=== PATIENT | female | born 1960 | race Caucasian/White ===

== ENCOUNTER → 2021-05-17 12:29 | Outpatient (CLI) | payer BC, SELFPAY ==
--- NOTE | ~2021-05-17 | XR_ITS ---
XR chest 2V DATE: 05/17/2021 12:45 INDICATION: Cough, bronchitis TECHNIQUE: Upright 2 views COMPARISON: None FINDINGS: Normal heart size. Mild patchy airspace disease is noted primarily in the mid and lower lung zones, right greater than l eft, suggesting bilateral pneumonia. No pleural effusion or pulmonary vascular congestion or pneumothorax is detected. Degenerative spurring of the thoracic spine. IMPRESSION: Patchy mild bilateral pulmonary infiltrates, mid and lower lung zones primarily, right gr eater than left, suggesting bilateral pneumonia Reviewed, dictated and finalized at location B. OR TECHNICAL BUSINESS ANALYST IMPRESSION: Patchy mild bilateral pulmonary infiltrates, mid and lower lung zon es primarily, right greater than left, suggesting bilateral pneumonia
== END ==
PROVIDERS: PCP Family Medicine; Visit Provider Family Medicine
DX: J40 Bronchitis, not specified as acute or chronic (principal); R05.9 Cough, unspecified; R91.8 Other nonspecific abnormal finding of lung field
CPT/HCPCS: 71046

== ENCOUNTER → 2021-06-06 17:43 | Outpatient (CLI) | payer BC, SELFPAY ==
--- NOTE | ~2021-06-06 | XR_ITS ---
EXAMINATION: XR chest 2V DATE: 06/06/2021 18:11 INDICATION: Dyspnea TECHNIQUE: PA and lateral views of the chest were obtained. COMPARISON: Chest radiograph dated 05/17/2021 FINDINGS: The lungs are clear with no focal airspace opacities, pulmonary edema, pleural effusion or pneumothor ax. The cardiomediastinal silhouette is normal. Mild thoracic spondylosis. IMPRESSION: 1. No acute cardiopulmonary disease. Reviewed, dictated and finalized at location A. D BANK BOOKING CLERK
== END ==
PROVIDERS: PCP Nurse Practitioner Family; Visit Provider Nurse Practitioner Family
DX: R06.00 Dyspnea, unspecified (principal); M47.814 Spondylosis without myelopathy or radiculopathy, thoracic region
CPT/HCPCS: 71046

== ENCOUNTER 2024-09-01 09:10 | Outpatient (CLI) | payer MEDICARE, SELFPAY ==
--- NOTE | ~2024-09-01 | CT_ITS ---
EXAMINATION: CT abdomen pelvis w con DATE: 09/01/2024 09:41 INDICATION: Unspecified abdominal pain TECHNIQUE: Computed tomography (CT) of the abdomen and pelvis was performed with 100 mL Omnipaque-350 intravenous contrast. Automated exposure control and iterative reconstruction technique were employe d. The dose-length product was 414.43 mGy-cm. COMPARISON: None FINDINGS: Lung bases are clear. Heart size is normal. No pericardial or pleural effusion. Liver, gallbladder, s pleen, pancreas, bilateral adrenal glands and kidneys are normal. There is inflammatory stranding mor rounding a 9.4 x 6.0 x 5.7 cm loculated fluid collection with some incomplete peripheral enhancement in the right lower quadrant. This lies along side a markedly dilated fluid-filled appendix which stevie ures up to 1.4 cm diameter. There appears to be a direct communication of the fluid collection with t he lumen of the dilated appendix through a defect in the appendiceal wall near its confluence with th e cecum consistent with a ruptured acute appendicitis. No bowel obstruction. Decompressed bladder is unremarkable. There are some small dystrophic calcifications centrally within the anteverted uterus. No free intraperitoneal gas. No pathologically enlarged abdominal or pelvic lymphadenopathy. Moderate lumbar and lower thoracic spondylosis. IMPRESSION: 1. Ruptured acute appendicitis with 9.4 x 6.0 x 5.7 cm loculated fluid collection in the right abdome n without well-defined organizing wall consistent with likely developing abscess. Dr. Gamez discus sed these findings with Dr. Newton at 10:[address] Newton will discuss findings and recommendati ons with the patient has been held in the department pending notification. Reviewed, dictated and finalized at location A. IMPRESSION: 1. Ruptured acute appendicitis with 9.4 x 6.0 x 5.7 cm loculated fluid collecti on in the right abdomen without well-defined organizing wall consistent with li reji developing abscess. Dr. Gamez discussed these findings with Dr. Lozano s at 10:[address] Newton will discuss findings and recommendations with the patient has been held in the department pending notification.
--- OUTSIDE RECORDS SUMMARY | 2024-09-01 09:23 | XMS_ITS | Continuity of Care Document ---
Author Organization [facility] Address [address] [place] [address] [place] [address] Phone Care Team Providers Care Nitriles Lab Technician Name Role Phone Heath Ashley MD Unavailable Unavailable Allergies, Adverse Reactions, Alerts Substance Reaction Status Criticality No Known Allergies Active No Inform ation Medications Medication Instructions Dosage Effective Dates (start - stop) Status Comments [place] 10 mg-325 mg tablet take 1 by Oral route 4 times every day as needed 1 - Active avoid driving or oepraet machines Ativan 1 mg tablet take 1 tablet by oral route 2 times every day as needed 1 MG - Active avoid drivin g or operate machines Qsymia 15 mg-92 mg capsule, extended release take 1 capsule by oral route every day in the morning 1.00 capsule - Active losartan 100 mg tablet take 1 tablet (100MG) by oral route every day 100 MG - Active Cymbalta 60 mg capsule,delayed release take 1 capsule (60MG) by oral route every day 60 MG - Active Procedures Procedure Date PREV VISIT, EST, AGE 40-64 OFFICE/OUTPATIENT VISIT, EST OFFICE/OUTPATIENT VISIT, EST OFFICE/OUTPATIENT VISIT, EST OFFICE/OUTPATIENT VISIT, EST PREV VISIT, EST, AGE 40-64 OFFICE/OUTPATIENT VISIT, EST OFFICE/OUTPATIENT VISIT, EST OFFICE/OUTPATIENT VISIT, EST OFFICE/OUTPATIENT VISIT, EST OFFICE/OUTPATIENT VISIT, EST OFFICE/OUTPATIENT VISIT, EST OFFICE/OUTPATIENT VISIT, EST OFFICE/OUTPATIENT VISIT, EST OFFICE/OUTPATIENT VISIT, EST OFFICE/OUTPATIENT VISIT, EST OFFICE/OUTPATIENT VISIT, EST OFFICE/OUTPATIENT VISIT, EST OFFICE/OUTPATIENT VISIT, EST OFFICE/OUTPATIENT VISIT, EST OFFICE/OUTPATIENT VISIT, EST OFFICE/OUTPATIENT VISIT, EST OFFICE/OUTPATIENT VISIT, EST OFFICE/OUTPATIENT VISIT, EST Advance Directives Directive Yes / No Effective Date File Name No Information Encounters Encounter Description Practice Location Reason(s) For Visit Diagnoses Date Provider Providers Copied on Encounter [facility], [address], [place], [place], [address], tel:[phone] [facility] Medicine No Information 8 Dion Weathers [address], [place], [place], [address] , [place]. [phone] [facility], [address], [address], [place] tel:[phone] [facility] No Information 8 Dion Weathers [address], [place], [place], [address] , [place]. tel:[phone] PREV VISIT, EST, AGE 40-64 [facility], [address], [place], [place], [address], [place] tel:[phone] [facility] Physical (chief complaint) Encounter for general adult medical exam w abnormal findingsEssential (primary) hypertensionGeneral ized anxiety disorderChronic pain syndrome 8 Dion Weathers [address], [place], [place], [address] , [place]. tel:[phone] Referring Provider: Heath Ashley [address], [place], [place], [address]. tel:[phone] OFFICE/OUTPA TIENT VISIT, [facility], [address], [place], [place], [address], [place] tel:[phone] [facility] Medicine weight loss1 (chief complaint) knee pain1 (chief complaint) anxiety1 (chief complaint) toothache1 (chief complaint) Atypical facial painChronic pain syndromeGeneralized anxiety disorderAbnormal weight loss 7 Dion Joe. [address], [place], [place], [address] , [place]. tel:[phone] Referring Provider: Heath Ashley [address], [place], [place], [address]. tel:[phone] OFFICE/OUTPA TIENT VISIT, [facility] ([facility], [address], [place], [place], [address], [place] tel:[phone] [facility] Medicine anxiety1 (chief complaint) HTN (chief complaint) knee pain1 (chief complaint) obesity1 (chief complaint) HLP (chief complaint) Body mass index (BMI) 32.0-32.9, adultChronic pain syndromeHyperlipide miaEssential (primary) hypertension 7 Dion Joe. [address], [place], [place], [address] , [place]. tel:[phone] Referring Provider: Tena [address], [place], [place], [address]. tel:[phone] OFFICE/OUTPA TIENT VISIT, [facility] ([facility], [address], [place], [place], [address], [place] tel:[phone] [facility] Medicine HTN (chief complaint) anxiety1 (chief complaint) obeisty1 (chief complaint) nail fungus1 (chief complaint) Dermatophytic onychiaGeneralized anxiety disorderChronic pain syndromeBody mass index (BMI) 35.0-35.9, adult 7 Dion Weathers [address], [place], [place], [address] , [place]. tel:[phone] Referring Provider: Heath Ashley, [address], [place], [place], [address]. tel:[phone] PREV VISIT, EST, AGE 40-64 [facility], [address], [place], [place], [address], [place] tel:[phone] [facility] PHysical (chief complaint) Encounter for general adult medical exam w abnormal findingsEssential (primary) hypertensionGeneral ized anxiety disorderChronic pain syndrome May- 7 Dion Joe. [address], [place], [place], [address] , [place]. tel:[phone] Referring Provider: Tena [address], [place], [place], [address]. tel:[phone] OFFICE/OUTPA TIENT VISIT, [facility] ([facility], [address], [place], [address], [place] tel:[phone] [facility] knee pain1 (chief complaint) anxiety1 (chief complaint) Chronic pain syndromeGeneralized anxiety disorder 6 Dion Joe. [address], [place], [place], [address] , [place]. tel:[phone] Referring Provider: Tena [address], [place], [place], [address]. tel:[phone] OFFICE/OUTPA TIENT VISIT, [facility] ([facility], [address], [place], [place], [address], [place] tel:[phone] [facility] knee pain1 (chief complaint) anxiety1 (chief complaint) HTN (chief complaint) Weight loss1 (chief complaint) Generalized anxiety disorderChronic pain syndromeEssential (primary) hypertensionObesity 6 Dion Joe. [address], [place], [place], [address] , [place]. tel:[phone] Referring Provider: Tena Patrick [address], [place], [place], [address]. tel:[phone] OFFICE/OUTPA TIENT VISIT, [facility] ([facility], [address], [place], [place], [address], [place] tel:[phone] [facility] Obesity1 (chief complaint) anxiety1 (chief complaint) knee pain1 (chief complaint) Chronic pain syndromeGeneralized anxiety disorderObesityEsse ntial (primary) hypertension 6 Dion Joe. [address], [place], [place], [address] , [place]. tel:[phone] Referring Provider: Heath Ashley, [address], [place], [place], [address]. tel:[phone] OFFICE/OUTPA TIENT VISIT, [facility] ([facility], [address], [place], [place], [address], [place] tel:[phone] [facility] chronic pain (chief complaint) anxiety1 (chief complaint) Generalized anxiety disorderPain in unspecified knee 6 Dion Joe. [address], [place], [place], [address] , [place]. tel:[phone] Referring Provider: Tena Patrick [address], [place], [place], [address]. tel:[phone] OFFICE/OUTPA TIENT VISIT, [facility] ([facility], [address], [place], [place], [address], [place] tel:[phone] [facility] anxiety1 (chief complaint) knee pain1 (chief complaint) Chronic pain syndromeGeneralized Anxiety Disorder 5 Dion Joe. [address], [place], [place], [address] , [place]. tel:[phone] Referring Provider: Tena Patrick [address], [place], [place], [address]. tel:[phone] OFFICE/OUTPA TIENT VISIT, [facility] ([facility], [address], [place], [place], [address], [place] tel:[phone] [facility] knee pain (chief complaint) HTN (chief complaint) anxiety (chief complaint) Dietary surveillance and counselingPain in joint involving lower legGeneralized anxiety disorderUnspecified essential hypertension Nov- 5 Dion Weathers [address], [place], [place], [address] , [place]. tel:[phone] Referring Provider: Tena Patrick [address], [place], [place], [address]. tel:[phone] OFFICE/OUTPA TIENT VISIT, [facility] ([facility], [address], [place], [place], [address], [place] tel:[phone] [facility] knee pain (chief complaint) anxiety (chief complaint) Dietary surveillance and counselingPain in joint involving lower legGeneralized anxiety disorder 5 Dion Weathers [address], [place], [place], [address] , [place]. tel:[phone] Referring Provider: Tena Patrick [address], [place], [place], [address]. tel:[phone] OFFICE/OUTPA TIENT VISIT, [facility] ([facility], [address], [place], [place], [address], [place] tel:[phone] [facility] knee pain (chief complaint) anxiety (chief complaint) Pain in joint involving lower legGeneralized anxiety disorderDietary surveillance and counseling May- 0 5 Dion Mads[address], [place], [place], [address] , [place]. tel:[phone] Referring Provider: Tena Patrick [address], [place], [place], [address]. tel:[phone] OFFICE/OUTPA TIENT VISIT, [facility] ([facility], [address], [place], [place], [address], [place] tel:[phone] [facility] cough (chief complaint) knee pain (chief complaint) HTN (chief complaint) anxiety (chief complaint) Dietary surveillance and counselingHypertens ion, UnspecifiedPain in joint involving lower legGeneralized anxiety disorderBronchitis, Acute 4 Dion Weathers [address], [place], [place], [address] , [place]. [phone] Referring Provider: Heath Ashley, [address], [place], [place], [address]. tel:[phone] OFFICE/OUTPA TIENT VISIT, [facility] ([facility], [address], [place], [place], [address], [place] [phone] [facility] HLP (chief complaint) knee pain (chief complaint) anxiety (chief complaint) Dietary surveillance and counselingHypertens ion, UnspecifiedPain in joint involving lower legMajor depressive affective disorder, single episode, mild degree Sep- 4 Dion Joe. [address], [place], [place], [address] , [place]. [phone] Referring Provider: Heath Ashley, T[address], [place], [place], [address]. tel:[phone] OFFICE/OUTPA TIENT VISIT, [facility] ([facility], [address], [place], [place], [address], [place] tel:[phone] [facility] knee pain (chief complaint) anxiety (chief complaint) Generalized anxiety disorderPain in joint involving lower leg Chad- 4 Dion Joe. [address], [place], [place], [address] , [place]. tel:[phone] Referring Provider: Heath Ashley, [address], [place], [place], [address]. tel:[phone] OFFICE/OUTPA TIENT VISIT, [facility] ([facility], [address], [place], [place], [address], [place] tel:[phone] [facility] KNee pain (chief complaint) anxiety (chief complaint) Dietary surveillance and counselingCHRONIC PAIN NECMajor depressive affective disorder, single episode, mild degree Feb-2 4 Dion Joe. [address], [place], [place], [address] , [place]. [phone] Referring Provider: Tena Patrick [address], [place], [place], [address]. tel:[phone] OFFICE/OUTPA TIENT VISIT, [facility] ([facility], [address], [place], [place], [address], [place] tel:[phone] [facility] Knee pain (chief complaint) anxiety (chief complaint) HTN (chief complaint) Dietary surveillance and counselingCHRONIC PAIN NECHypertension, UnspecifiedGenerali zed anxiety disorder Mar- 3 Dion Joe. [address], [place], [place], [address] , [place]. tel:[phone] Referring Provider: Heath Ashley, [address], [place], [place], [address]. tel:[phone] OFFICE/OUTPA TIENT VISIT, [facility] ([facility], [address], [place], [place], [address], [place] [phone] [facility] knee pain (chief complaint) HTN (chief complaint) anxiety (chief complaint) Dietary surveillance and counselingHypertens ion, UnspecifiedGenerali zed anxiety disorderPain in joint involving lower leg Nov- 3 Dion Joe. [address], [place], [place], [address] , [place]. tel:[phone] Referring Provider: Tena Patrick [address], [place], [place], [address]. tel:[phone] OFFICE/OUTPA TIENT VISIT, [facility] ([facility], [address], [place], [place], [address], [place] tel:[phone] [facility] hand pain (chief complaint) anxiety (chief complaint) HTN (chief complaint) KNee pain (chief complaint) Dietary surveillance and counselingHypertens ion, UnspecifiedCHRONIC PAIN NECGeneralized anxiety disorder Aug- 3 Dion Joe. [address], [place], [place], [address] , [place]. tel:[phone] Referring Provider: Tena Patrick [address], [place], [place], [address]. tel:[phone] OFFICE/OUTPA TIENT VISIT, [facility] ([facility], [address], [place], [place], [address], [place] tel:[phone] [facility] knee pain (chief complaint) HTN (chief complaint) anxiety (chief complaint) Dietary surveillance and counselingHypertens ion, UnspecifiedPain in joint involving lower legGeneralized anxiety disorder 3 Ashley Heath. [address], [place], [place], [address] , [place]. tel:[phone] OFFICE/OUTPA TIENT VISIT, [facility] ([facility], [address], [place], [place], [address], [place] tel:[phone] [facility] knee pain (chief complaint) anxiety (chief complaint) HTN (chief complaint) Dietary surveillance and counselingHypertens ion, UnspecifiedCHRONIC PAIN NECMajor depressive affective disorder, single episode, mild degree 2 Dion Joe. [address], [place], [place], [address] , [place]. tel:[phone] Family History Family Member Type Diagnosis Age At Onset Mother Problem (finding) Alcoholism Brother Problem (finding) Alive and well Father Problem (finding) Coronary artery disease 65 Father Problem (finding) Alive and well Payers Payer name Insurance type Covered alliance party ID Authoriza tion(s) No Information Social History Type Description Quantity Date Captured Comments Alcohol Use Details Unknown Caffeine Use Details Unknown Tobacco Use Status No Information Smoking Status No Information Sex Female Chief Complaint And Reason For Visit No Information Plan Of Treatment Date Type Action Status Referral Ordered: Donny Crane (related to Dermatophytic onychia) ordered Referral Referred To: Donny Crane [address] [place], [id number] Ordered: Referrals: Donny Crane. Evaluate and treat ordered Referral Ordered: MAMMOGRAM, SCREENING ordered Referral Ordered: MRI LOWER EXTREMITY W/O DYE Right knee ordered Referral Ordered: KNEE XRAY TWO-VIEW ordered Referral Ordered: HAND XRAY, TWO VIEW Right hand ordered History Of Present Illness Encounter Date Complaint History Of Prese nt Illness Physical Pt needs annual physicla. Pt has chronic anxiety and depression. Pt takes cymbalta and ativan and doing ok Pt denies any suicidal or homicidal thought Pt deneis any crying spells. pt tkaes nroco for chronic kene pain. Pt takes qsymia for weight control. Pt doing ok. Pt also has HTn pt takes losatan and her BP is stalbe. Pt denies any other complaints toothache1 Pt c/o right low er molar toothache. Pt has multiple fillings due to decay and cavity. Pt denies any facial swelling. Pt does not have appointment with dentist until 4 weeks from now. anxiety1 Pt has chronic a nxiety and depression. Pt takes cymblata and ativanand doing ok. Pt denies any suicidal or homicidal thought. Pt denies any crying spells. knee pain1 Pt has chronic s evere bilateral knee pain due to arthritis. Pt does not want knee replacement surgery ,Pt takes norco PRN for pain and doing ok. Pt denies any knee swelling or redness. weight loss1 Pt has been losi ng weight on qsymia. Pt denies any Gi issue. Pt denies any nasuea, vomiting, diarrhea or blood in stool anxiety1 Pt has chronic a nxiety and depression. Pt takes cymbalta and ativan. Pt doing ok. Pt denies any suicidal or homicidal thought Pt denies any cyring spells HTN Pt has HTN. Pt t akes losartan and her BP is ok Pt denies any chest pain or headache knee pain1 Pt has bilatearl knee pain due to arthritis. Pt is doing ok with norco PRN for pain. Pt denies any worsening pain. Pt denies nay redness or swelling obesity1 Pt is obese Pt h as lost weight with diet and exercise and qsymia. Pt denies any chest pain or headache HLP Pt has mild HLP Pt is on low fat and low carb diet nail fungus1 Pt c/o right big nail fungus for 2 months. Pt notices irregularity of nail growth and also thickened right big nail growth Pt has been trying OTC anti fungal but not working obeisty1 Pt is overweigth Pt takes qsymia and shelost some weight but gained back Pt denies any chest pain and hedache Pt wants to continue on qsymia anxiety1 Pt has chronic a nxiety and depression Pt takes cymbalta and ativan and doing ok, Pt denies any suicidal or homcidial thoguht HTN Pt has HTN. Pt t akes losartan and her BP is ok. Pt denies any chest pain or headache PHysical Pt needs annual physical. Pt has chronic anxiety and depression. Pt takes cymbalta and ativan. pt denies any suicidal or homicidal thought. Pt denies any crying spells. Pt has HTN. Pt takes losartan and her BP is stable. Pt has chornic knee pain. Pt takes norco PRN for pain Pt denies any worsening pain Pt denies any swelling. Pt has 7/10 pain. Pt stopped phentermine 3 months ago. Pt wants to try phentermine again. Pt did well with it last time. anxiety1 Pt has chornic a nxiety and depression Pt takes cymbalta and ativan and doing ok Pt denies any suicidal or homicidal thought knee pain1 Pt has chornic k nee pain. Pt takes norco and doing ok Pt failed NSAID. pt denies any worsening pain or any swelling Weight loss1 Pt lost 15 pound s with phentermine. Pt wants to try brand name adipex. Pt denies any headache, chest pain HTN Pt has HTn. Pt t akes losartan. Her BP is slighlty high today. Pt denies any chest pain or headache anxiety1 Pt has chronic a nxiety and depression Pt takes cymblta and ativan. Pt denies any suicidal or homicidal thought. Pt denies any crying spells knee pain1 Pt has chronic s evere bilateral knee pain .Pt takes norco for pain Pt failed NSAID. Pt denies any wroenign pain. 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 Pt denies any worsneing pain. Pt has severe arthritis. Pt unable to afford MRI or ortho now anxiety1 Pt has chronic a nxiety and depression. Pt takes cymbalta and xanax. Pt denies any suicidasl thought. Pt denies any cyring spells Obesity1 Pt is obese. Pt has difficulty losing weight. Pt has knee pain so she may only swim but she canot do any other activity anxiety1 Pt has chronic a nxiety and depression. Pt takes cymbalta and ativan. Pt denies any suicidal or homicidal thought. Pt denies any cyring spells chronic pain Pt has chronic b ilateral knee pain. Pt has degenerative disease. Pt unable to afford MRi and she does not want to see ortho for knee replacement anxiety1 Pt has chronic a nxiety and depression Pt takes cymbalta and ativan. Pt doing ok. Pt denies any suicidal or homicidal thought Pt denies any crying spells Pt denies any feeling of hopelessness. knee pain1 Pt has chronic b ilateral knee pain Pt denies any swelling. Pt denies any redness or warmth. Pt denies any recent injury. Pt has 8/10 pain daily HTN Pt takes losarta . Her BP is ok today. Pt denies any chest pain or headcahe knee pain Location: knee. Additional information: Pt has chronic knee pain. Pt unable to afford mRI or ortho. Pt denies any worsening pain. Pt has sharp pain constantly. Pt denies any knee swelling. anxiety The patient pres ents with anxious/fearful thoughts but denies fatigue. The anxiety is associated with weight gain. The patient denies any nausea and vomiting. Additional information: Pt has chronic anxiety and depression. Pt takes cymbalta and ativan. Pt doing ok. Pt denies any suicidal thought. Pt wants to wean herself off of cymbalta at one point on her own but feels worse. Pt is back on regular dose of cymbalta now. knee pain Location: knee. Additional information: Pt has chronic knee pain Pt denies any worsening pain Pt uanble to afford MRI. anxiety Additional infor mation: Pt has chrnic anxiety and depression. Pt takes ativan and cymbalta and doing ok. Pt denies any suicidal thought. Instructions Date Instruction Additional Infor mation Weight management Related to Enc ounter for general adult medical exam w abnormal findings Increase physical activity Relat ed to Encounter for general adult medical exam w abnormal findings Prescribed Diet Educ ation/Lifestyle Education Regarding Diet Related to Dietary Surveillance and Counseling Prescribed Activity and Exercise Education Related to Dietary Surveillance and Counseling Prescribed Activity and Exercise Education Related to Dietary Surveillance and Counseling Prescribed Diet Educ ation/Lifestyle Education Regarding Diet Related to Dietary Surveillance and Counseling Increase physical activity Relat ed to Atypical facial pain Weight management Related to Aty pical facial pain Prescribed Activity and Exercise Education Related to Dietary Surveillance and Counseling Prescribed Diet Educ ation/Lifestyle Education Regarding Diet Related to Dietary Surveillance and Counseling Increase physical activity Relat ed to Body mass index (BMI) 32.0-32.9, adult Weight management Related to Bod y mass index (BMI) 32.0-32.9, adult Prescribed Diet Educ ation/Lifestyle Education Regarding Diet Related to Dietary Surveillance and Counseling Prescribed Activity and Exercise Education Related to Dietary Surveillance and Counseling Prescribed Activity and Exercise Education Related to Dietary Surveillance and Counseling Prescribed Diet Educ ation/Lifestyle Education Regarding Diet Related to Dietary Surveillance and Counseling Prescribed Activity and Exercise Education Related to Dietary Surveillance and Counseling Prescribed Diet Educ ation/Lifestyle Education Regarding Diet Related to Dietary Surveillance and Counseling Prescribed Activity and Exercise Education Related to Dietary Surveillance and Counseling Prescribed Diet Educ ation/Lifestyle Education Regarding Diet Related to Dietary Surveillance and Counseling Prescribed Activity and Exercise Education Related to Dietary Surveillance and Counseling Prescribed Diet Educ ation/Lifestyle Education Regarding Diet Related to Dietary Surveillance and Counseling Prescribed Activity and Exercise Education Related to Dietary Surveillance and Counseling Prescribed Diet Educ ation/Lifestyle Education Regarding Diet Related to Dietary Surveillance and Counseling Prescribed Diet Educ ation/Lifestyle Education Regarding Diet Related to Dietary Surveillance and Counseling Prescribed Activity and Exercise Education Related to Dietary Surveillance and Counseling Prescribed Diet Educ ation/Lifestyle Education Regarding Diet Related to Dietary Surveillance and Counseling Prescribed Activity and Exercise Education Related to Dietary Surveillance and Counseling Decrease caloric intake Related to Dietary surveillance counseling Physical activity counseling Rel ated to Dietary surveillance counseling Physical activity counseling Rel ated to Dietary surveillance counseling Decrease caloric intake Related to Dietary surveillance counseling Decrease caloric intake Related to Dietary surveillance counseling Dietary counseling Related to Di etary surveillance counseling Decrease caloric intake Related to Dietary surveillance counseling Dietary counseling Related to Di etary surveillance counseling Decrease caloric intake Related to Dietary surveillance counseling Dietary counseling Related to Di etary surveillance counseling Dietary counseling Related to Di etary surveillance counseling Decrease caloric intake Related to Dietary surveillance counseling Dietary counseling Related to Di etary surveillance counseling Decrease caloric intake Related to Dietary surveillance counseling Decrease caloric intake Related to Dietary surveillance counseling Dietary counseling Related to Di etary surveillance counseling Dietary counseling Related to Di etary surveillance counseling Decrease caloric intake Related to Dietary surveillance counseling Assessments Type Assessment Date No Information
--- OUTSIDE RECORDS SUMMARY | 2024-09-01 09:23 | XMS_ITS | Clinical Summary ---
Author Organization [facility] Address [facility] [place] [address] Care Team Providers Care Bag Maker Name Role Phone Darin Hernandez MD Primary Care Provider [phone] Source Comments [facility],non-owned Affiliates and Associated Physician Practices is amultiple site organization consisting of ambulatory clinics and hospital sitesin [place], [place], [place] and [place]. This disclosure is being madepursuant to the Care Everywhere program and may not contain all information available regarding this patient. Last updated 17.[facility] [employer] Allergies No known active allergies Medications * Be aware that medications may not be up to date on this document. Alwaysverify current medications with the patient. losartan (COZAAR) 100 MG tablet Take 100 mg by mouth once daily Active busPIRone (BUSPAR) 10 MG tablet Take 10 mg by mouth 3 times daily Active zolpidem (AMBIEN) 5 MG tablet Take 5 mg by mouth nightly as needed for Insomnia Active HYDROcodone-felix taminophen (NORCO) 5-325 MG tabletIndicatio ns:Pain Take 1 tablet by mouth as needed for Pain Reasons: Pain Active Social History Tobacco Use Types Packs/Day Years Used Date Smoking Tobacco: Never Smokeless Tobacco: Never Alcohol Use Standard Drinks/Week Comments No 0 (1 standard drink = 0.6 oz pur e alcohol) Comments No Sex and Gender Information Value Date Recorded Sex Assigned at Not on file 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 Gender Identity Not on file Sexual Orientation Not on file Last Filed Vital Signs Vital Sign Reading Time Taken Comments Blood Pressure 150/84 08/05/2018 2:00 PM CDT Pulse 81 08/05/2018 2:00 PM CDT Temperature 36.6 C (97.8 F) 08/05/2018 9:19 AM CDT Respiratory Rate 13 08/05/2018 2:00 PM CDT Oxygen Saturation 97% 08/05/2018 2:00 PM CDT Inhaled Oxygen Concentration - - Weight 93 kg (205 lb) 08/05/2018 9:19 AM CDT Height 160 cm (5' 3) 08/05/2018 9:19 AM CDT Body Mass Index 36.31 08/05/2018 9:19 AM CDT Plan of Treatment Health Maintenance Due Date Last Done Comments BONE DENSITY TESTING 1959 COLOGUARD (AGES 45-75) - COL ON CA SCREENING 1959 COLON MONITORING 1959 COLONOSCOPY - COLON CA SCREENING 1959 CT COLONOGRAPHY - COLON CA SCREENING 1959 Colorectal Cancer Screening 1959 FIT - COLON CA SCREENING 1959 FLEX SIG - COLON CA SCREENING 1959 LIPID TESTING 1959 MAMMOGRAM 1959 HIV SCREENING 1974 HEPATITIS C SCREENING 04/25/1977 DTAP/TDAP/TD VACCINES (1 - Tdap) 1978 PNEUMOCOCCAL VACCINE 50+ (1 of 1 - PCV) 2009 ZOSTER VACCINE (1 of 2) 2009 COVID-19 VACCINE ( - 2023-2 5 season) 2023 DEPRESSION SCREENING 04/01/2024 INFLUENZA VACCINE (Season Ended) 2024 Respiratory Syncytial Virus (RSV) Vaccine Pt: or over 60 yrs (1 - 1-dose 75+ series) 2034 HEPATITIS B VACCINE Aged Out No longe r eligible based on patient's age to complete this topic HIB VACCINE Aged Out No longer eligi ble based on patient's age to complete this topic HPV VACCINE Aged Out No longer eligi ble based on patient's age to complete this topic MENINGOCOCCAL (Group B) VACC INE SHARED DECISION-MAKING Aged Out No longer eligibl e based on patient's age to complete this topic MENINGOCOCCAL GROUPS A/C/Y/W VACCINE Aged Out No longer eligible b ased on patient's age to complete this topic Insurance [employer] LIABILITY Member Subscriber Plan / Payer ( fective 2018-Present) Name:Juanita Santosa Member ID:[id number] Relation to Subscriber:Self Name:Fanny Santos Subscriber ID:[id number] Payer ID:Not on file Group ID:Not on file Type:Third Green Party Liability [id number] Address: [address] Care Teams Bag Maker Relationship Specialty Start Date End Date Darin Hernandez MD [address] [place] [address] PCP - General Family Medicine 08/05/18
[2024-09-01 09:36] LABS: Estimated Glomerular Filt Rate > 60
== END 2024-09-01 09:11 | disposition home or self-care (01) ==
LOC: ANHIMG 09:12
PROVIDERS: PCP Family Medicine; Visit Provider Nurse Practitioner Family
DX: K35.33 Acute appendicitis with perforation, localized peritonitis, and gangrene, with abscess (principal)
CPT/HCPCS: 36415; 74177; Q9967

== ENCOUNTER 2024-09-01 10:08 | Inpatient (IN) | payer MEDICARE, SELFPAY ==
--- NOTE | ~2024-09-01 | CT_ITS ---
EXAMINATION: CT guide absc cath placement DATE: 09/02/2024 09:03 INDICATION: Appendiceal abscess TECHNIQUE: The procedure including the risks and benefits was discussed with the patient. Risks discu ssed included bleeding and infection. The patient understood the risks and benefits and agreed to pro ceed. The patient was confirmed to be receiving appropriate antibiotic coverage. The skin overlying the abdomen was prepped and draped in usual sterile fashion. Anesthetic was administered with 1% lid ocaine subcutaneously. Utilizing CT guidance an 18-gauge trochar needle was inserted into the periton eal fluid collection. The inner stylette was removed and a J-wire advanced into the fluid collection with position confirmed by CT. Needle was removed and utilizing Seldinger technique the tract was ser ially dilated over the wire to 10 Welsh. A 10 Welsh pigtail catheter was then placed in the loop fo rmed and locked with position confirmed by CT. The catheter was stitched to the skin with suture. Ant ibiotic appointment and a sterile dressing were applied. An additional adhesive fixation device was a pplied. There were no immediate complications. The dose-length product was 194.46 mGy-cm. FINDINGS: CT images demonstrate the catheter within the right lower quadrant abscess. 50 mL of purule nt appearing opaque acosta-colored fluid was aspirated for testing. IMPRESSION: 1. Successful CT-guided right lower quadrant abscess drainage catheter placement. 2. 50 mL fluid was sent for aerobic and anaerobic cultures. 3. The catheter will be managed by Dr. Ibanez. Reviewed, dictated and finalized at location A. IMPRESSION: 1. Successful CT-guided right lower quadrant abscess drainage catheter placemen t. 2. 50 mL fluid was sent for aerobic and anaerobic cultures. 3. The catheter will be managed by Dr. Ibanez.
[2024-09-01 10:11] VITALS: BP 123/69; PULSE 94; RESP 16; TEMP 37; O2SAT 98
--- OUTSIDE RECORDS SUMMARY | 2024-09-01 10:27 | XMS_ITS | Continuity of Care Document ---
Author Organization [facility] Address [address] [place] [address] [place] [address] Phone Care Team Providers Care Wood Club Neck Whipper Name Role Phone Heath Ashley MD Unavailable Unavailable Allergies, Adverse Reactions, Alerts Substance Reaction Status Criticality No Known Allergies Active No Inform ation Medications Medication Instructions Dosage Effective Dates (start - stop) Status Comments Ativan 1 mg tablet take 1 tablet by oral route 2 times every day as needed 1 MG - Active avoid drivin g or operate machines Lincoln 10 mg-325 mg tablet take 1 by Oral route 4 times every day as needed 1 - Active avoid driving or oepraet machines Cymbalta 60 mg capsule,delayed release take 1 capsule (60MG) by oral route every day 60 MG - Active losartan 100 mg tablet take 1 tablet (100MG) by oral route every day 100 MG - Active Qsymia 15 mg-92 mg capsule, extended release take 1 capsule by oral route every day in the morning 1.00 capsule - Active Procedures Procedure Date PREV VISIT, [...] Diagnoses Date Provider Providers Copied on Encounter [facility], [address], [place], [place], [address], tel:[phone] [facility] Medicine No Information 8 Dion Weathers [address], [place], [place], [address] , [place]. [phone] [facility], [address], [address], [place] tel:[phone] [facility] No Information 8 Dion Weathers [address], [place], [place], [address] , [place]. tel:[phone] PREV VISIT, EST, AGE 40-64 [facility], [address], [place], [place], [address], [place] tel:[phone] [facility] Physical (chief complaint) Encounter for general adult medical exam w abnormal findingsEssential (primary) hypertensionGeneral ized anxiety disorderChronic pain syndrome 8 Dion Weathers [address], [place], [place], [address] , [place]. tel:[phone] Referring Provider: Hetah Ashley [address], [place], [place], [address]. tel:[phone] OFFICE/OUTPA TIENT VISIT, [facility], [address], [place], [place], [address], [place] tel:[phone] [facility] Medicine weight loss1 (chief complaint) knee pain1 (chief complaint) anxiety1 (chief complaint) toothache1 (chief complaint) Atypical facial painChronic pain syndromeGeneralized anxiety disorderAbnormal weight loss 7 Dion Joe. [address], [place], [place], [address] , [place]. tel:[phone] Referring Provider: Heath Ashley [address], [place], [place], [address]. tel:[phone] OFFICE/OUTPA TIENT VISIT, [facility], [address], [place], [place], [address], [place] tel:[phone] [facility] Medicine anxiety1 (chief complaint) HTN (chief complaint) knee pain1 (chief complaint) obesity1 (chief complaint) HLP (chief complaint) Body mass index (BMI) 32.0-32.9, adultChronic pain syndromeHyperlipide miaEssential (primary) hypertension 7 Dion Joe. [address], [place], [place], [address] , [place]. tel:[phone] Referring Provider: Tena [address], [place], [place], [address]. tel:[phone] OFFICE/OUTPA TIENT VISIT, [facility], [address], [place], [place], [address], [place] tel:[phone] [facility] Medicine HTN (chief complaint) anxiety1 (chief complaint) obeisty1 (chief complaint) nail fungus1 (chief complaint) Dermatophytic onychiaGeneralized anxiety disorderChronic pain syndromeBody mass index (BMI) 35.0-35.9, adult 7 Dion Weathers [address], [place], [place], [address] , [place]. tel:[phone] Referring Provider: Heath Ashley, [address], [place], [place], [address]. tel:[phone] PREV VISIT, EST, AGE 40-64 [facility], [address], [place], [place], [address], [place] tel:[phone] [facility] PHysical (chief complaint) Encounter for general adult medical exam w abnormal findingsEssential (primary) hypertensionGeneral ized anxiety disorderChronic pain syndrome May- 7 Dion Joe. [address], [place], [place], [address] , [place]. tel:[phone] Referring Provider: Tena [address], [place], [place], [address]. tel:[phone] OFFICE/OUTPA TIENT VISIT, [facility], [address], [place], [address], [place] tel:[phone] [facility] knee pain1 (chief complaint) anxiety1 (chief complaint) Chronic pain syndromeGeneralized anxiety disorder 6 Dion Joe. [address], [place], [place], [address] , [place]. tel:[phone] Referring Provider: Tena [address], [place], [place], [address]. tel:[phone] OFFICE/OUTPA TIENT VISIT, [facility], [address], [place], [place], [address], [place] tel:[phone] [facility] knee pain1 (chief complaint) anxiety1 (chief complaint) HTN (chief complaint) Weight loss1 (chief complaint) Generalized anxiety disorderChronic pain syndromeEssential (primary) hypertensionObesity 6 Dion Joe. [address], [place], [place], [address] , [place]. tel:[phone] Referring Provider: Tena [address], [place], [place], [address]. tel:[phone] OFFICE/OUTPA TIENT VISIT, [facility], [address], [place], [address], [place] tel:[phone] [facility] Obesity1 (chief complaint) anxiety1 (chief complaint) knee pain1 (chief complaint) Chronic pain syndromeGeneralized anxiety disorderObesityEsse ntial (primary) hypertension 6 Dion Joe. [address], [place], [place], [address] , [place]. tel:[phone] Referring Provider: Heath Ashley, [address], [place], [place], [address]. tel:[phone] OFFICE/OUTPA TIENT VISIT, [facility], [address], [place], [place], [address], [place] tel:[phone] [facility] chronic pain (chief complaint) anxiety1 (chief complaint) Generalized anxiety disorderPain in unspecified knee 6 Dion Joe. [address], [place], [place], [address] , [place]. tel:[phone] Referring Provider: Tena [address], [place], [place], [address]. tel:[phone] OFFICE/OUTPA TIENT VISIT, [facility], [address], [place], [place], [address], [place] tel:[phone] [facility] anxiety1 (chief complaint) knee pain1 (chief complaint) Chronic pain syndromeGeneralized Anxiety Disorder 5 Dion Joe. [address], [place], [place], [address] , [place]. tel:[phone] Referring Provider: Tena [address], [place], [place], [address]. tel:[phone] OFFICE/OUTPA TIENT VISIT, [facility], [address], [place], [place], [address], [place] tel:[phone] [facility] knee pain (chief complaint) HTN (chief complaint) anxiety (chief complaint) Dietary surveillance and counselingPain in joint involving lower legGeneralized anxiety disorderUnspecified essential hypertension Nov- 5 Dion Weathers [address], [place], [place], [address] , [place]. tel:[phone] Referring Provider: Tena [address], [place], [place], [address]. tel:[phone] OFFICE/OUTPA TIENT VISIT, [facility], [address], [place], [place], [address], [place] tel:[phone] [facility] knee pain (chief complaint) anxiety (chief complaint) Dietary surveillance and counselingPain in joint involving lower legGeneralized anxiety disorder 5 Dion Weathers [address], [place], [place], [address] , [place]. tel:[phone] Referring Provider: Tena [address], [place], [place], [address]. tel:[phone] OFFICE/OUTPA TIENT VISIT, [facility], [address], [place], [place], [address], [place] tel:[phone] [facility] knee pain (chief complaint) anxiety (chief complaint) Pain in joint involving lower legGeneralized anxiety disorderDietary surveillance and counseling May- 0 5 Dion [address], [place], [place], [address] , [place]. tel:[phone] Referring Provider: Tena Patrick [address], [place], [place], [address]. tel:[phone] OFFICE/OUTPA TIENT VISIT, [facility], [address], [place], [place], [address], [place] tel:[phone] [facility] cough (chief complaint) knee pain (chief complaint) HTN (chief complaint) anxiety (chief complaint) Dietary surveillance and counselingHypertens ion, UnspecifiedPain in joint involving lower legGeneralized anxiety disorderBronchitis, Acute 4 Dion Weathers [address], [place], [place], [address] , [place]. [phone] Referring Provider: Heath Ashley, [address], [place], [place], [address]. tel:[phone] OFFICE/OUTPA TIENT VISIT, [facility], [address], [place], [place], [address], [place] [phone] [facility] HLP (chief complaint) knee pain (chief complaint) anxiety (chief complaint) Dietary surveillance and counselingHypertens ion, UnspecifiedPain in joint involving lower legMajor depressive affective disorder, single episode, mild degree Sep- 4 Dion Joe. [address], [place], [place], [address] , [place]. [phone] Referring Provider: Heath Ashley, [address], [place], [place], [address]. tel:[phone] OFFICE/OUTPA TIENT VISIT, [facility], [address], [place], [place], [address], [place] tel:[phone] [facility] knee pain (chief complaint) anxiety (chief complaint) Generalized anxiety disorderPain in joint involving lower leg Chad- 4 Dion Joe. [address], [place], [address] , [place]. tel:[phone] Referring Provider: Heath Ashley, [address], [place], [place], [address]. tel:[phone] OFFICE/OUTPA TIENT VISIT, [facility], [address], [place], [place], [address], [place] tel:[phone] [facility] KNee pain (chief complaint) anxiety (chief complaint) Dietary surveillance and counselingCHRONIC PAIN NECMajor depressive affective disorder, single episode, mild degree Feb-2 4 Dion Joe. [address], [place], [address] , [place]. tel:[phone] Referring Provider: Tena [address], [place], [address]. tel:[phone] OFFICE/OUTPA TIENT VISIT, [facility], [address], [place], [address], [place] tel:[phone] [facility] Knee pain (chief complaint) anxiety (chief complaint) HTN (chief complaint) Dietary surveillance and counselingCHRONIC PAIN NECHypertension, UnspecifiedGenerali zed anxiety disorder Mar- 3 Dion Joe. [address], [place], [address] , [place]. tel:[phone] Referring Provider: Heath Ashley, [address], [place], [place], [address]. tel:[phone] OFFICE/OUTPA TIENT VISIT, [facility], [address], [place], [place], [address], [place] [phone] [facility] knee pain (chief complaint) HTN (chief complaint) anxiety (chief complaint) Dietary surveillance and counselingHypertens ion, UnspecifiedGenerali zed anxiety disorderPain in joint involving lower leg Nov- 3 Dion Joe. [address], [place], [place], [address] , [place]. tel:[phone] Referring Provider: Tena [address], [place], [place], [address]. tel:[phone] OFFICE/OUTPA TIENT VISIT, [facility], [address], [place], [place], [address], [place] tel:[phone] [facility] hand pain (chief complaint) anxiety (chief complaint) HTN (chief complaint) KNee pain (chief complaint) Dietary surveillance and counselingHypertens ion, UnspecifiedCHRONIC PAIN NECGeneralized anxiety disorder Aug- 3 Dion Joe. [address], [place], [place], [address] , [place]. tel:[phone] Referring Provider: Tena [address], [place], [place], [address]. tel:[phone] OFFICE/OUTPA TIENT VISIT, [facility], [address], [place], [place], [address], [place] tel:[phone] [facility] knee pain (chief complaint) HTN (chief complaint) anxiety (chief complaint) Dietary surveillance and counselingHypertens ion, UnspecifiedPain in joint involving lower legGeneralized anxiety disorder 3 Ashley Heath. [address], [place], [place], [address] , [place]. tel:[phone] OFFICE/OUTPA TIENT VISIT, [facility], [address], [place], [place], [address], [place] tel:[phone] [facility] knee pain (chief complaint) anxiety (chief complaint) HTN (chief complaint) Dietary surveillance and counselingHypertens ion, UnspecifiedCHRONIC PAIN NECMajor depressive affective disorder, single episode, mild degree 2 Dion Joe. [address], [place], [place], [address] , [place]. tel:[phone] Family History Family Member Type Diagnosis Age At Onset Mother Problem (finding) Alcoholism Brother Problem (finding) Alive and well Father Problem (finding) Coronary artery disease 65 Father Problem (finding) Alive and well Payers Payer name Insurance type Covered libertarian ID Authoriza tion(s) No Information Social History Type Description Quantity Date Captured Comments Alcohol Use Details Unknown Caffeine Use Details Unknown Tobacco Use Status No Information Smoking Status No Information Sex Female Chief Complaint And Reason For Visit No Information Plan Of Treatment Date Type Action Status Referral Ordered: Donny Crane (related to Dermatophytic onychia) ordered Referral Referred To: Donny Crane [address] [place], [id number] Ordered: Referrals: Donny Crane. Evaluate and treat [...] is stalbe. Pt denies any other complaints weight loss1 Pt has been losi ng weight on qsymia. Pt denies any Gi issue. Pt denies any nasuea, vomiting, diarrhea or blood in stool knee pain1 Pt has chronic s evere bilateral knee pain due to arthritis. Pt does not want knee replacement surgery ,Pt takes norco PRN for pain and doing ok. Pt denies any knee swelling or redness. anxiety1 Pt has chronic a nxiety and depression. Pt takes cymblata and ativanand doing ok. Pt denies any suicidal or homicidal thought. Pt denies any crying spells. toothache1 Pt c/o right low er molar [...] on low fat and low carb diet HTN Pt has HTN. Pt t akes losartan and her BP is ok. Pt denies any chest pain or headache anxiety1 Pt has chronic a nxiety and depression Pt takes cymbalta and ativan and doing ok, Pt denies any suicidal or homcidial thoguht obeisty1 Pt is overweigth Pt takes qsymia and shelost some weight but gained back Pt denies any chest pain and hedache Pt wants to continue on qsymia nail fungus1 Pt c/o right big nail fungus for 2 months. Pt notices irregularity of nail growth and also thickened right big nail growth Pt has been trying OTC anti fungal but not working PHysical Pt needs annual physical. Pt has [...] Pt did well with it last time. knee pain1 Pt has chornic k nee pain. Pt takes norco and doing ok Pt failed NSAID. pt denies any worsening pain or any swelling anxiety1 Pt has chornic a nxiety and depression Pt takes cymbalta and ativan and doing ok Pt denies any suicidal or homicidal thought knee pain1 Pt has chronic s evere bilateral knee pain .Pt takes norco for pain Pt failed NSAID. Pt denies any wroenign pain. Pt denies any redness or swelling anxiety1 Pt has chronic a nxiety and depression Pt takes cymblta and ativan. Pt denies any suicidal or homicidal thought. Pt denies any crying spells HTN Pt has HTn. Pt t akes losartan. Her BP is slighlty high today. Pt denies any chest pain or headache Weight loss1 Pt lost 15 pound s with phentermine. Pt wants to try brand name adipex. Pt denies any headache, chest pain Obesity1 Pt is obese. Pt has difficulty losing weight. Pt has knee pain so she may only swim but she canot do any other activity anxiety1 Pt has chronic a nxiety and depression. Pt takes cymbalta and xanax. Pt denies any suicidasl thought. 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 Pt denies any worsneing pain. Pt has severe arthritis. Pt unable to afford MRI or ortho now chronic pain Pt has chronic b ilateral knee pain. Pt has degenerative disease. Pt unable to afford MRi and she does not want to see ortho for knee replacement anxiety1 Pt has chronic a nxiety and depression. Pt takes cymbalta and ativan. Pt denies any suicidal or homicidal thought. Pt denies any cyring spells anxiety1 Pt has chronic a nxiety and depression Pt takes cymbalta and ativan. Pt doing ok. Pt denies any suicidal or homicidal thought Pt denies any crying spells Pt denies any feeling of hopelessness. knee pain1 Pt has chronic b ilateral knee pain Pt denies any swelling. Pt denies any redness or warmth. Pt denies any recent injury. Pt has 8/10 pain daily anxiety The patient pres ents with anxious/fearful [...] pain constantly. Pt denies any knee swelling. HTN Pt takes losarta . Her BP [...] thought. Instructions Date Instruction Additional Infor mation Prescribed Activity and Exercise Education Related to Dietary Surveillance and Counseling Prescribed Diet Educ ation/Lifestyle Education Regarding Diet Related to Dietary Surveillance and Counseling Increase physical activity Relat ed to Encounter for general adult medical exam w abnormal findings Weight management Related to Enc ounter for general adult medical exam w abnormal findings Prescribed Activity and Exercise Education Related to [...] y mass index (BMI) 32.0-32.9, adult Prescribed Activity and Exercise Education Related to [...] Diet Related to Dietary Surveillance and Counseling Decrease [...]
--- OUTSIDE RECORDS SUMMARY | 2024-09-01 10:27 | XMS_ITS | Clinical Summary ---
Author Organization [facility] Address [facility] [facility] [place] [address] Care Team Providers Care Master Ship Name Role Phone Darin Hernandez MD Primary Care Provider [phone] Source Comments [facility],non-owned Affiliates and Associated Physician Practices is amultiple site organization consisting of ambulatory clinics and hospital sitesin [place] and [place]. This disclosure is being madepursuant to the Care Everywhere program and may not contain all information available regarding this patient. 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
[2024-09-01] MEDS: MORPHINE SULFATE (*CRX) 4 MG/ML INJ IV PUSH ×3 (10:38→20:14)
[2024-09-01] MEDS: ONDANSETRON INJ 4 MG/2 ML VIAL IV PUSH (10:38)
--- OUTSIDE RECORDS SUMMARY | 2024-09-01 10:51 | XMS_ITS | Continuity of Care Document ---
Author Organization [facility] Address [address] [place] [address] [place] [address] Phone Care Team Providers Care Executive Associate Name Role Phone Heath Ashley MD Unavailable Unavailable Allergies, Adverse Reactions, Alerts Substance Reaction Status Criticality No Known Allergies Active No Inform ation Medications Medication Instructions Dosage Effective Dates (start - stop) Status Comments Ativan 1 mg tablet take 1 tablet by oral route 2 times every day as needed 1 MG - Active avoid drivin g or operate machines [place] 10 mg-325 mg tablet take 1 by [...] Diagnoses Date Provider Providers Copied on Encounter [facility], [address], [place], [place], [address], tel:[phone] [facility] Medicine No Information 8 Dion Weathers [address], [place], [place], [address] , [place]. [phone] [facility], [address] [place], [address], [place] tel:[phone] [facility] No Information 8 Dion Weathers [address], [place], [place], [address] , [place]. tel:[phone] PREV VISIT, EST, AGE 40-64 [facility], [address], [place], [place], [address], [place] tel:[phone] [facility] Physical (chief complaint) Encounter for general adult medical exam w abnormal findingsEssential (primary) hypertensionGeneral ized anxiety disorderChronic pain syndrome 8 Dion Weathers [address], [place], [place], [address] , [place]. tel:[phone] Referring Provider: Heath Ashley [address], [place], [place], [address]. tel:[phone] OFFICE/OUTPA TIENT VISIT, [facility], [address], [place], [place], [address], [place] tel:[phone] [facility] Medicine weight loss1 (chief complaint) knee pain1 (chief complaint) anxiety1 (chief complaint) toothache1 (chief complaint) Atypical facial painChronic pain syndromeGeneralized anxiety disorderAbnormal weight loss 7 Dion Joe. [address], [place], [place], [address] , [place]. tel:[phone] Referring Provider: Heath Ashley [address], [place], [place], [address]. tel:[phone] OFFICE/OUTPA TIENT VISIT, [facility], [address], [place], [address], [place] tel:[phone] [facility] Medicine anxiety1 (chief complaint) HTN (chief complaint) knee pain1 (chief complaint) obesity1 (chief complaint) HLP (chief complaint) Body mass index (BMI) 32.0-32.9, adultChronic pain syndromeHyperlipide miaEssential (primary) hypertension 7 Dion Joe. [address], [place], [place], [address] , [place]. tel:[phone] Referring Provider: Tena [address], [place], [address]. tel:[phone] OFFICE/OUTPA TIENT VISIT, [facility], [address], [place], [address], [place] tel:[phone] [facility] Medicine HTN (chief complaint) anxiety1 (chief complaint) obeisty1 (chief complaint) nail fungus1 (chief complaint) Dermatophytic onychiaGeneralized anxiety disorderChronic pain syndromeBody mass index (BMI) 35.0-35.9, adult 7 Dion Weathers [address], [place], [place], [address] , [place]. tel:[phone] Referring Provider: Heath Ashley, [address], [place], [place], [address]. tel:[phone] PREV VISIT, EST, AGE 40-64 [facility], [address], [place], [address], [place] tel:[phone] [facility] PHysical (chief complaint) Encounter for general adult medical exam w abnormal findingsEssential (primary) hypertensionGeneral ized anxiety disorderChronic pain syndrome May- 7 Dion Joe. [address], [place], [address] , [place]. tel:[phone] Referring Provider: Tena [address], [place], [address]. tel:[phone] OFFICE/OUTPA TIENT VISIT, [facility], [address], [place], [address], [place] tel:[phone] [facility] knee pain1 (chief complaint) anxiety1 (chief complaint) Chronic pain syndromeGeneralized anxiety disorder 6 Dion Joe. [address], [place], [address] , [place]. tel:[phone] Referring Provider: Tena [address], [place], [place], [address]. tel:[phone] OFFICE/OUTPA TIENT VISIT, [facility], [address], [place], [address], [place] tel:[phone] [facility] knee pain1 (chief complaint) anxiety1 (chief complaint) HTN (chief complaint) Weight loss1 (chief complaint) Generalized anxiety disorderChronic pain syndromeEssential (primary) hypertensionObesity 6 Dion Joe. [address], [place], [address] , [place]. tel:[phone] Referring Provider: Tena [address], [place], [place], [address]. tel:[phone] OFFICE/OUTPA TIENT VISIT, [facility], [address], [place], [address], [place] tel:[phone] [facility] Obesity1 (chief complaint) anxiety1 (chief complaint) knee pain1 (chief complaint) Chronic pain syndromeGeneralized anxiety disorderObesityEsse ntial (primary) hypertension 6 Dion Joe. [address], [place], [place], [address] , [place]. tel:[phone] Referring Provider: Heath Ashley, [address], [place], [place], [address]. tel:[phone] OFFICE/OUTPA TIENT VISIT, [facility], [address], [place], [place], [address], [place] tel:[phone] [facility] chronic pain (chief complaint) anxiety1 (chief complaint) Generalized anxiety disorderPain in unspecified knee 6 Dion Joe. [address], [place], [place], [address] , [place]. tel:[phone] Referring Provider: Tena [address], [place], [place], [address]. tel:[phone] OFFICE/OUTPA TIENT VISIT, [facility], [address], [place], [address], [place] tel:[phone] [facility] anxiety1 (chief complaint) knee pain1 (chief complaint) Chronic pain syndromeGeneralized Anxiety Disorder 5 Dion Joe. [address], [place], [address] , [place]. tel:[phone] Referring Provider: Tena [address], [place], [address]. tel:[phone] OFFICE/OUTPA TIENT VISIT, [facility], [address], [place], [address], [place] tel:[phone] [facility] knee pain (chief complaint) HTN (chief complaint) anxiety (chief complaint) Dietary surveillance and counselingPain in joint involving lower legGeneralized anxiety disorderUnspecified essential hypertension Nov- 5 Dion Weathers [address], [place], [address] , [place]. tel:[phone] Referring Provider: Tena [address], [place], [address]. tel:[phone] OFFICE/OUTPA TIENT VISIT, [facility], [address], [place], [address], [place] tel:[phone] [facility] knee pain (chief complaint) anxiety (chief complaint) Dietary surveillance and counselingPain in joint involving lower legGeneralized anxiety disorder 5 Dion Weathers [address], [place], [address] , [place]. tel:[phone] Referring Provider: Tena [address], [place], [place], [address]. tel:[phone] OFFICE/OUTPA TIENT VISIT, [facility], [address], [place], [address], [place] tel:[phone] [facility] knee pain (chief complaint) anxiety (chief complaint) Pain in joint involving lower legGeneralized anxiety disorderDietary surveillance and counseling May- 0 5 Dion [address], [place], [address] , [place]. tel:[phone] Referring Provider: Tena [address], [place], [place], [address]. tel:[phone] OFFICE/OUTPA TIENT VISIT, [facility], [address], [place], [address], [place] tel:[phone] [facility] cough (chief complaint) knee pain (chief complaint) HTN (chief complaint) anxiety (chief complaint) Dietary surveillance and counselingHypertens ion, UnspecifiedPain in joint involving lower legGeneralized anxiety disorderBronchitis, Acute 4 Dion Weathers [address], [place], [address] , [place]. [phone] Referring Provider: Heath Ashley, [address], [place], [place], [address]. tel:[phone] OFFICE/OUTPA TIENT VISIT, [facility], [address], [place], [address], [place] [phone] [facility] HLP (chief complaint) knee pain (chief complaint) anxiety (chief complaint) Dietary surveillance and counselingHypertens ion, UnspecifiedPain in joint involving lower legMajor depressive affective disorder, single episode, mild degree Sep- 4 Dion Joe. [address], [place], [address] , [place]. [phone] Referring Provider: Heath Ashley, [address], [place], [place], [address]. tel:[phone] OFFICE/OUTPA TIENT VISIT, [facility], [address], [place], [place], [address], [place] tel:[phone] [facility] knee pain (chief complaint) anxiety (chief complaint) Generalized anxiety disorderPain in joint involving lower leg Chad- 4 Dion Joe. [address], [place], [address] , [place]. tel:[phone] Referring Provider: Heath Ashley, [address], [place], [place], [address]. tel:[phone] OFFICE/OUTPA TIENT VISIT, [facility], [address], [place], [address], [place] tel:[phone] [facility] KNee pain (chief complaint) anxiety (chief complaint) Dietary surveillance and counselingCHRONIC PAIN NECMajor depressive affective disorder, single episode, mild degree Feb-2 4 Dion Joe. [address], [place], [place], [address] , [place]. tel:[phone] Referring Provider: Tnea [address], [place], [place], [address]. tel:[phone] OFFICE/OUTPA TIENT VISIT, [facility], [address], [place], [address], [place] tel:[phone] [facility] Knee pain (chief complaint) anxiety (chief complaint) HTN (chief complaint) Dietary surveillance and counselingCHRONIC PAIN NECHypertension, UnspecifiedGenerali zed anxiety disorder Mar- 3 Dion Joe. [address], [place], [place], [address] , [place]. tel:[phone] Referring Provider: Heath Ashley, [address], [place], [place], [address]. tel:[phone] OFFICE/OUTPA TIENT VISIT, [facility], [address], [place], [address], [place] [phone] [facility] knee pain (chief complaint) HTN (chief complaint) anxiety (chief complaint) Dietary surveillance and counselingHypertens ion, UnspecifiedGenerali zed anxiety disorderPain in joint involving lower leg Nov- 3 Dion Joe. [address], [place], [address] , [place]. tel:[phone] Referring Provider: Tena [address], [place], [place], [address]. tel:[phone] OFFICE/OUTPA TIENT VISIT, [facility], [address], [place], [address], [place] tel:[phone] [facility] hand pain (chief complaint) anxiety (chief complaint) HTN (chief complaint) KNee pain (chief complaint) Dietary surveillance and counselingHypertens ion, UnspecifiedCHRONIC PAIN NECGeneralized anxiety disorder Aug- 3 Dion Joe. [address], [place], [address] , [place]. tel:[phone] Referring Provider: Tena [address], [place], [address]. tel:[phone] OFFICE/OUTPA TIENT VISIT, [facility], [address], [place], [place], [address], [place] tel:[phone] [facility] knee pain (chief complaint) HTN (chief complaint) anxiety (chief complaint) Dietary surveillance and counselingHypertens ion, UnspecifiedPain in joint involving lower legGeneralized anxiety disorder 3 Ashley Heath. [address], [place], [place], [address] , [place]. tel:[phone] OFFICE/OUTPA TIENT VISIT, [facility], [address], [place], [address], [place] tel:[phone] [facility] knee pain (chief complaint) anxiety (chief complaint) HTN (chief complaint) Dietary surveillance and counselingHypertens ion, UnspecifiedCHRONIC PAIN NECMajor depressive affective disorder, single episode, mild degree 2 Dion Joe. [address], [place], [address] , [place]. tel:[phone] Family History Family Member Type Diagnosis Age [...] onychia) ordered Referral Referred To: Donny Crane [address] [place], [phone] Ordered: Referrals: Donny Crane. 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 Pt denies any worsneing [...]
--- OUTSIDE RECORDS SUMMARY | 2024-09-01 10:51 | XMS_ITS | Clinical Summary ---
Author Organization [facility] Address [facility] [place] [address] Care Team Providers Care Loss Prevention Research Engineer Name Role Phone Darin Hernandez MD Primary Care Provider [phone] Source Comments [facility],non-owned Affiliates and Associated Physician Practices is amultiple site organization consisting of ambulatory clinics and hospital sitesin [place], [place], [place] and [place]. This disclosure is being madepursuant to the Care Everywhere program and may not contain all information available regarding this patient. 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
[2024-09-01 11:15] LABS: Basophils Absolute Auto 0.1 K/mm3 (0.0-0.1); Basophils Percent Auto 0.4 % (0.2-1.2); Eosinophils Absolute Auto 0.1 K/mm3 (0-0.3); Eosinophils Percent Auto 0.3 % (0-4.4); Hematocrit 40.1 % (37.0-47.0); Immature Granulocyte Absolute 0.42 K/mm3 (0.00-0.031); Immature Granulocyte Percent A 1.7 % (0-0.5); Lymphocytes Absolute Auto 2.12 K/mm3 (0.9-3.2); Lymphocytes Percent Auto 8.5 % (18.3-44.2); Mean Corpuscular HGB Conc 32.4 g/dl (32-36); Mean Corpuscular Hemoglobin 29.8 pg (26-34); Mean Platelet Volume 9.4 fl (7.4-10.4); Monocytes Absolute Auto 1.1 K/mm3 (0.1-0.6); Monocytes Percent Auto 4.3 % (2.6-8.5); Neutrophils Absolute Auto 21.1 K/mm3 (1.3-6.7); Neutrophils Percent Auto 84.8 % (45.5-73.1); Platelet Count Result 504 k/mm3 (150-375); Red Blood Count 4.36 M/mm3 (4.2-5.4); Red Cell Distribution Width 13.5 % (11.5-14.5); White Blood Count 24.9 K/mm3 (4.5-10.0)
[2024-09-01 11:31] LABS: Lactic Acid Reflex 0.9 mmol/L (0.7-2.0)
[2024-09-01 11:32] LABS: Alanine Aminotransferase 17 U/L (6-35); Albumin Level 4.2 g/dL (3.5-5.1); Alkaline Phosphatase 101 U/L (38-126); Anion Gap 14 mmol/L (4-12); Aspartate Amino Transferase 23 U/L (14-36); Bilirubin,Total 0.5 mg/dL (0.2-1.3); Blood Urea Nitrogen 16 mg/dL (7-17); Calcium 9.3 mg/dL (8.4-10.2); Carbon Dioxide 21 mmol/L (22-30); Chloride 105 mmol/L (98-107); Estimated CRCL calculation 74 ml/min; Estimated Glomerular Filt Rate > 60; Glucose 110 mg/dL (65-110); Potassium 3.8 mmol/L (3.4-5.0); Sodium 140 mmol/L (137-145); Total Protein 7.9 g/dL (6.3-8.2)
[2024-09-01] MEDS: PIPERACILLN/TAZ 3.375GM/NS50ML 3.375 GM/50 ML BAG IVPB ×3 (11:34→23:24)
[2024-09-01 11:38] LABS: Anisocytosis 1+; Platelet Estimate Increased (Adequate); Schistocytes None Seen
--- NOTE | 2024-09-01 13:37 | P.HP_ITS ---
H&P: HPI History of Present Illness Date/Time: 09/01/24 13:37 Chief Complaint: Abdominal pain Narrative: Patient presented to the ED today for increasing lower abdominal pain. Patient first noted lower abdominal pain with associated nausea/vomiting/diarrhea in April. Symptoms have intermittently been present since this time. She also notes bloating. Upon most recent episode, patient notes fever of 102.9. No relieving or remitting factors. Patient notes 20 pound weight loss since this time that she accredits to lack of appetite and nausea. Patient eventually saw her PCP yesterday for symptoms and was encouraged to go to the ED. Stat AM CT and labs ordered. Augmentin ordered. Only previous abdominal surgery was C- section. Never had colonoscopy done, but did Cologuard last year and results did not prompt any further evaluation. CT this morning demonstrated ruptured acute appendicitis with large fluid collection in right abdomen consistent with developing abscess. ED workup included labs which demonstrated elevated WBC count of 24.9. Afebrile. [facility] Past Medical History Medical History BMI 34.0-34.9,adult Traumatic brain injury Family History Family History Other Family history of malignant neoplasm of bone Family history of rheumatoid arthritis Social History Social History Smoking status: Never smoker Alcohol intake: never Substance use: never Substance use type: does not use Meds Home Medications and Allergies Home Medications ?Medication ?Instructions ?Recorded ?Confirmed ?Type albuterol sulfate 90 mcg/actuation 2 inh inhalation Q6H PRN shortness 07/27/21 08/31/24 Rx aerosol inhaler of breath or wheezing #8.5 grams losartan 100 mg tablet 100 mg PO DAILY #90 tabs 02/22/23 08/31/24 Rx amoxicillin 875 mg-potassium 1 tablet PO Q8H 10 days #30 tabs 08/31/24 08/31/24 Rx clavulanate 125 mg tablet Allergies Allergy/AdvReac Type Severity Reaction Status Date / Time tramadol Allergy Unknown Swelling Verified 09/01/24 10:08 Vital Signs Vital Signs - 24 hr 09/01/24 10:11 Temperature 98.6 F Pulse Rate 94 Respiratory Rate 16 Blood Pressure 123/69 Pulse Oximetry 98 Oxygen Delivery Room Air Exam Const: General: comfortable HENMT: Face/Nose/Sinus: Normal nares present Eyes: General: appearance normal, both eyes and all related structures Resp: Effort & Inspection: normal respiratory effort Cardio: Rate: regular rate GI: Inspection: distended GI Palp: Yes Soft to palpation, Yes Tenderness to palpation present (GI) and Yes Guarding due to palpation present (GI) (diffuse) Auscultation: abnormal bowel sounds (hypoactive) : General: Yes bladder normal to palpation Skin: General skin exam: normal color Lesions: no lesions noted Rashes: no rashes noted Extrem: General: normal to inspection Psych: Mental Status: mental status grossly normal H&P: Results Labs Labs: Short CBC 09/01/24 Range/Units 10:50 WBC 24.9 H (4.5-10.0) K/mm3 Hgb 13.0 (12.0-15.0) g/dL Hct 40.1 (37.0-47.0) % Plt Count 504 H (150-375) k/mm3 BMP 09/01/24 10:50 Sodium 140 Potassium 3.8 Chloride 105 Carbon Dioxide 21 L BUN 16 Creatinine 0.62 L Glucose 110 Calcium 9.3 Liver Function 09/01/24 Range/Units 10:50 Total Bilirubin 0.5 (0.2-1.3) mg/dL AST 23 (14-36) U/L ALT 17 (6-35) U/L Alkaline Phosphatase 101 (38-126) U/L Albumin 4.2 (3.5-5.1) g/dL Assessment and Plan Assessment and plan (1) Colon cancer screening: Code(s): Z12.11 - Encounter for screening for malignant neoplasm of colon Status: Acute (2) Lower abdominal pain: Code(s): R10.30 - Lower abdominal pain, unspecified Status: Acute (3) Acute appendicitis with generalized peritonitis and abscess: Code(s): K35.219 - Acute appendicitis with generalized peritonitis, with abscess, unspecified as to perforation Status: Acute Assessment and Plan: CT evidence of ruptured appendicitis with appendiceal abscess. WBC 24.9. Spoke with radiology and they are agreeable to place percutaneous drain - order placed. Continue morphine for pain control and IV abx. Maintain NPO diet. General surgery will continue to follow once patient is admitted to the hospital. Plan Discussed patient's case and plan of care with Dr. Jones.
--- NOTE | 2024-09-01 13:40 | ED_ITS ---
HPI - Abdominal Pain General Chief Complaint: Abdominal Pain Stated Complaint: CT + FOR APPENDICITIS Time Seen by Provider: 09/01/24 10:21 History of Present Illness HPI narrative: For the past month and a half, patient started having pain to right lower quadrant that goes to her left side, has been getting worse, her doctor started her on antibiotics suspecting diverticulitis and she got a CT done today showing ruptured appendicitis. Related Data Allergies Allergy/AdvReac Type Severity Reaction Status Date / Time tramadol Allergy Unknown Swelling Verified 09/01/24 10:08 Review of Systems 2 Review of Systems: All systems reviewed & are unremarkable except as noted in HPI and below [facility] Past Medical History Medical History BMI 34.0-34.9,adult Traumatic brain injury Family History Family History Other Family history of malignant neoplasm of bone Family history of rheumatoid arthritis Social History Social History Smoking status: Never smoker Alcohol intake: never Substance use: never Substance use type: does not use Exam 2 Narrative: EXAMINATION OF ORGAN SYSTEMS/BODY AREAS: Constitutional: Vital signs per nursing GENERAL:[No acute distress, non-toxic appearing.] HEAD: Normal with no signs of head trauma. EYES: EOMI, conjunctiva normal ENT: Hearing grossly intact LUNGS: Nonlabored breathing. HEART: [Regular rate and rhythm] ABD: [Soft], slightly tender to palpation right lower abdomen EXT: Normal range of motion SKIN: [No rashes or lesions.] NEURO: [Alert and oriented x 3. No gross focal sensory or strength deficits.] PSYCH: Normal affect Course Vital Signs Vital signs: Vital Signs Temperature 98.6 F 09/01/24 10:11 Pulse Rate 94 09/01/24 10:11 Respiratory Rate 16 09/01/24 10:11 Blood Pressure 123/69 09/01/24 10:11 Pulse Oximetry 98 09/01/24 10:11 Oxygen Delivery Room Air 09/01/24 10:11 Temperature 98.6 F 09/01/24 10:11 Pulse Rate 94 09/01/24 10:11 Respiratory Rate 16 09/01/24 10:11 Blood Pressure 123/69 09/01/24 10:11 Pulse Oximetry 98 09/01/24 10:11 Oxygen Delivery Room Air 09/01/24 10:11 MDM - Abdominal Pain MDM Narrative Medical decision making narrative: Electronic medical record was reviewed. Patient presented to the ED with complaint of [abdominal pain]. Vitals [were within acceptable limits]. Physical exam revealed soft abdomen with some slight tenderness to the right lower abdomen. Outpatient CT reviewed by myself showing ruptured appendicitis with developing abscess. [IV access was established by nursing staff. Patient was given morphine, Zosyn]. CBC, BMP, lipase, LFTs, bilirubin and alk phos were obtained. Labs were pertinent for white count 24.9. Case discussed with General surgery and Radiology for likely drain placement and admission. Patient agreeable to plan. Lab Data 09/01/24 10:50 09/01/24 10:50 Labs: Lab Results 09/01/24 Range/Units 10:50 WBC 24.9 H (4.5-10.0) K/mm3 RBC 4.36 (4.2-5.4) M/mm3 Hgb 13.0 (12.0-15.0) g/dL Hct 40.1 (37.0-47.0) % MCV 92.0 (80-100) fl MCH 29.8 (26-34) pg MCHC 32.4 (32-36) g/dl RDW 13.5 (11.5-14.5) % Plt Count 504 H (150-375) k/mm3 MPV 9.4 (7.4-10.4) fl Immature Gran % (Auto) 1.7 H (0-0.5) % Neut % (Auto) 84.8 H (45.5-73.1) % Lymph % (Auto) 8.5 L (18.3-44.2) % [place] % (Auto) 4.3 (2.6-8.5) % Eos % (Auto) 0.3 (0-4.4) % Baso % (Auto) 0.4 (0.2-1.2) % Lymph # (Auto) 2.12 (0.9-3.2) K/mm3 [place] # (Auto) 1.1 H (0.1-0.6) K/mm3 Eos # (Auto) 0.1 (0-0.3) K/mm3 Baso # (Auto) 0.1 (0.0-0.1) K/mm3 Abs Immat Gran (auto) 0.42 H (0.00-0.031) K/mm3 Absolute Neuts (auto) 21.1 H (1.3-6.7) K/mm3 Absolute Nucleated RBC 0.000 (0.0-0.012) K/mm3 Band Neutrophils % Not Reportable Nucleated RBC % 0.0 (0.0-0.2) % Platelet Estimate Increased (Adequate) Anisocytosis 1+ Schistocytes None seen Sodium 140 (137-145) mmol/L Potassium 3.8 (3.4-5.0) mmol/L Chloride 105 (98-107) mmol/L Carbon Dioxide 21 L (22-30) mmol/L Anion Gap 14 H (4-12) mmol/L BUN 16 (7-17) mg/dL Creatinine 0.62 L (0.7-1.0) mg/dL Estim Creat Clear Calc 74 ml/min Estimated GFR > 60 (59 - ) Glucose 110 (65-110) mg/dL Lactic Acid 0.9 (0.7-2.0) mmol/L Calcium 9.3 (8.4-10.2) mg/dL Total Bilirubin 0.5 (0.2-1.3) mg/dL AST 23 (14-36) U/L ALT 17 (6-35) U/L Alkaline Phosphatase 101 (38-126) U/L Total Protein 7.9 (6.3-8.2) g/dL Albumin 4.2 (3.5-5.1) g/dL Discharge Plan Discharge Clinical Impression: Ruptured appendicitis Patient Disposition: Still a Patient Condition: Serious Patient Language: Citizen [place] Prescriptions: No Action amoxicillin-pot clavulanate 875-125 mg tablet 1 tablet PO Q8H 10 Days Qty: 30 0RF albuterol sulfate 90 mcg/actuation HFA aerosol inhaler 2 inh inhalation Q6H PRN (Reason: shortness of breath or wheezing) Qty: 8.5 0RF losartan 100 mg tablet 100 mg PO DAILY Qty: 90 2RF Rx Instructions: 333 Follow-up/Referrals: Darin Hernandez MD [Primary Care Provider] -
[2024-09-01 14:27] VITALS: BP 118/66; PULSE 80; RESP 18; O2SAT 98
[2024-09-01 14:42] LABS: INR 1.1; Prothrombin Time 14.5 Seconds (11.1-14.7)
[2024-09-01 14:45] LABS: Partial Thromboplastin Time 33.3 Seconds (22.3-36.8)
[2024-09-01] MEDS: SODIUM CHLORIDE 0.9% IV 1,000 ML 100 ML IV CONT (16:44)
[2024-09-01 21:24] VITALS: BP 111/61; PULSE 87; RESP 16; TEMP 37.7; O2SAT 97
[2024-09-02] VITALS (11 sets, daily range): BP systolic 98–118; BP diastolic 51–64; PULSE 78–94; RESP 10–20; TEMP 36.6–37.2; O2SAT 96–100
[2024-09-02] MEDS: SODIUM CHLORIDE 0.9% IV 1,000 ML 100 ML IV CONT ×2 (02:45→13:05)
[2024-09-02] MEDS: MORPHINE SULFATE (*CRX) 4 MG/ML INJ IV PUSH ×5 (04:35→20:56)
[2024-09-02] MEDS: PIPERACILLN/TAZ 3.375GM/NS50ML 3.375 GM/50 ML BAG IVPB ×3 (04:35→17:11)
[2024-09-02 07:36] LABS: Basophils Absolute Auto 0.1 K/mm3 (0.0-0.1); Basophils Percent Auto 0.3 % (0.2-1.2); Eosinophils Absolute Auto 0.1 K/mm3 (0-0.3); Eosinophils Percent Auto 0.3 % (0-4.4); Hematocrit 34.6 % (37.0-47.0); Hemoglobin 11.2 g/dL (12.0-15.0); Immature Granulocyte Absolute 0.34 K/mm3 (0.00-0.031); Immature Granulocyte Percent A 1.6 % (0-0.5); Lymphocytes Absolute Auto 2.31 K/mm3 (0.9-3.2); Lymphocytes Percent Auto 10.6 % (18.3-44.2); Mean Corpuscular HGB Conc 32.4 g/dl (32-36); Mean Corpuscular Hemoglobin 29.9 pg (26-34); Mean Corpuscular Volume 92.3 fl (80-100); Mean Platelet Volume 9.2 fl (7.4-10.4); Monocytes Absolute Auto 1.1 K/mm3 (0.1-0.6); Monocytes Percent Auto 5.2 % (2.6-8.5); Neutrophils Absolute Auto 17.9 K/mm3 (1.3-6.7); Platelet Count Result 401 k/mm3 (150-375); Red Blood Count 3.75 M/mm3 (4.2-5.4); Red Cell Distribution Width 13.5 % (11.5-14.5); White Blood Count 21.9 K/mm3 (4.5-10.0)
[2024-09-02 08:33] LABS: Anion Gap 10 mmol/L (4-12); Blood Urea Nitrogen 13 mg/dL (7-17); Carbon Dioxide 22 mmol/L (22-30); Chloride 105 mmol/L (98-107); Estimated CRCL calculation 74 ml/min; Estimated Glomerular Filt Rate > 60; Glucose 84 mg/dL (65-110); Sodium 137 mmol/L (137-145)
[2024-09-02] MEDS: MIDAZOLAM HCL (*CRX) 2 MG/2 ML VIAL 1 MG IV PUSH (08:39)
[2024-09-02] MEDS: fentaNYL CITRATE INJ (*CRX) 100 MCG/2 ML VIAL 50 MCG IV PUSH (08:41)
--- NOTE | 2024-09-02 09:42 | WPDMODSED ---
Moderate Sedation Note-Pt Data Patient Data Diagnosis: perforated appendicitis with abscess Present Complaint: abdominal pain Procedure to be performed/Plan: ct guided percutaneous abscess drain placement Allergies Allergy/AdvReac Type Severity Reaction Status Date / Time tramadol Allergy Unknown Swelling Verified 09/01/24 10:08 Home Medications ?Medication ?Instructions ?Recorded ?Confirmed ?Type albuterol sulfate 90 mcg/actuation 2 inh inhalation Q6H PRN shortness 07/27/21 09/01/24 Rx aerosol inhaler of breath or wheezing #8.5 grams amoxicillin 875 mg-potassium 1 tablet PO Q8H 10 days #30 tabs 08/31/24 09/01/24 Rx clavulanate 125 mg tablet Current Medications: Active Medications Acetaminophen (Acetaminophen 500 Mg Tablet) 1,000 mg PO Q6H PRN PRN Reason: Mild Pain (1-3) or Fever Albuterol (Albuterol Sulfate (*Sp) Aerosol 1 Puff) 2 puff INHALATION Q6HRT PRN PRN Reason: shortness of breath or wheezing Piperacillin/Tazobactam/Dextrose (Zosyn 3.375 Gm/Ns 50 Ml) 3.375 gm in 50 mls @ 100 mls/hr IVPB Q6H [facility] Last Admin: 09/02/24 04:35 Dose: 100 mls/hr Sodium Chloride (Normal Saline Iv) 1,000 mls @ 100 mls/hr IV CONT .Q10H [facility] Last Admin: 09/02/24 02:45 Dose: 100 mls/hr Morphine Sulfate (Morphine Sulfate (*Crx) 4 Mg/Ml Inj) 4 mg IV PUSH Q4H PRN PRN Reason: Pain Rated 7-10 Last Admin: 09/02/24 09:28 Dose: 4 mg Morphine Sulfate (Morphine Sulfate (*Crx) 2 Mg/Ml Inj) 2 mg IV PUSH Q4H PRN PRN Reason: Pain Rated 4-6 Sedation/Anesthesia: No previous sedation/anesthesia problems (including family history). [facility] Past Medical History Medical History BMI 34.0-34.9,adult Traumatic brain injury Family History Family History Other Family history of malignant neoplasm of bone Family history of rheumatoid arthritis Social History Social History Smoking status: Never smoker Alcohol intake: never Substance use: never Substance use type: does not use Do You Feel Safe in your Home?: Yes Lack of Transportation: No Lack of Food: Never True Current Housing: I Have Housing Concerned About Future Housing: No Difficulty Paying Gas/Electric Bills: No Difficulty Paying for Meds: No Currently Unemployed: No Education: High School Diploma/GED Difficulty w/ Childcare or Family Care: No Spiritual care concerns: No Mod Sed Physical Exam Physical Exam Pre Procedural Exam: Normal: Appearance, Throat, Lungs, Heart Rate and Heart Rhythm and Variation: Abdomen (TTP) Hours since solid foods: 9 Hours since liquid intake: 2 Mallampati Classification: class II Internal Medicine - PN: Obj Da Vital Signs Vital Signs: Vital Signs - 24 hr 09/01/24 10:11 09/01/24 14:27 09/01/24 21:24 Temperature 98.6 F 99.9 F H Pulse Rate 94 80 87 Respiratory Rate 16 18 16 Blood Pressure 123/69 118/66 111/61 Pulse Oximetry 98 98 97 Oxygen Delivery Room Air Oxygen Flow Rate 09/02/24 05:21 09/02/24 08:26 09/02/24 08:30 Temperature 98.9 F Pulse Rate 84 82 87 Respiratory Rate 14 13 14 Blood Pressure 118/64 106/53 L 109/51 L Pulse Oximetry 97 100 99 Oxygen Delivery Nasal Cannula Nasal Cannula Oxygen Flow Rate 2 2 09/02/24 08:35 09/02/24 08:40 09/02/24 08:45 Temperature Pulse Rate 85 82 78 Respiratory Rate 17 14 14 Blood Pressure 101/56 L 98/52 L 104/53 L Pulse Oximetry 99 99 99 Oxygen Delivery Nasal Cannula Nasal Cannula Nasal Cannula Oxygen Flow Rate 2 2 2 09/02/24 08:50 09/02/24 08:55 09/02/24 09:00 Temperature Pulse Rate 83 78 81 Respiratory Rate 10 L 12 12 Blood Pressure 111/51 L 104/63 107/57 L Pulse Oximetry 99 99 99 Oxygen Delivery Nasal Cannula Nasal Cannula Nasal Cannula Oxygen Flow Rate 2 2 2 Intake/Output Intake/Output: Intake & Output 08/30/24 08/31/24 09/01/24 09/02/24 23:59 23:59 23:59 23:59 Intake Total 150 1000 Balance 150 1000 Meds/Results Medications: Active Medications Generic Name Dose Route Start Last Admin Trade Name Gurmeetq PRN Reason Stop Dose Admin Acetaminophen 1,000 mg 09/01/24 14:24 Acetaminophen 500 Mg Tablet PO Q6H PRN Mild Pain (1-3) or Fever Albuterol 2 puff 09/01/24 17:29 Albuterol Sulfate (*Sp) Aerosol 1 Puff INHALATION Q6HRT PRN shortness of breath or wheezing Piperacillin/Tazobactam/Dextrose 3.375 gm in 50 mls @ 100 mls/hr 09/01/24 18:00 09/02/24 04:35 Zosyn 3.375 Gm/Ns 50 Ml IVPB 100 mls/hr Q6H [facility] Administration Sodium Chloride 1,000 mls @ 100 mls/hr 09/01/24 14:25 09/02/24 02:45 Normal Saline Iv IV CONT 100 mls/hr .Q10H [facility] Administration Morphine Sulfate 4 mg 09/01/24 18:00 09/02/24 09:28 Morphine Sulfate (*Crx) 4 Mg/Ml Inj IV PUSH 4 mg Q4H PRN Administration Pain Rated 7-10 Morphine Sulfate 2 mg 09/01/24 14:24 Morphine Sulfate (*Crx) 2 Mg/Ml Inj IV PUSH Q4H PRN Pain Rated 4-6 Labs 09/02/24 07:24 09/02/24 05:48 Labs: Laboratory Results - last 24 hr 09/01/24 09/02/24 09/02/24 10:50 05:48 07:24 WBC 24.9 H 21.9 H RBC 4.36 3.75 L Hgb 13.0 11.2 L Hct 40.1 34.6 L MCV 92.0 92.3 MCH 29.8 29.9 MCHC 32.4 32.4 RDW 13.5 13.5 Plt Count 504 H 401 H MPV 9.4 9.2 Immature Gran % (Auto) 1.7 H 1.6 H Neut % (Auto) 84.8 H 82.0 H Lymph % (Auto) 8.5 L 10.6 L [place] % (Auto) 4.3 5.2 Eos % (Auto) 0.3 0.3 Baso % (Auto) 0.4 0.3 Lymph # (Auto) 2.12 2.31 [place] # (Auto) 1.1 H 1.1 H Eos # (Auto) 0.1 0.1 Baso # (Auto) 0.1 0.1 Abs Immat Gran (auto) 0.42 H 0.34 H Absolute Neuts (auto) 21.1 H 17.9 H Absolute Nucleated RBC 0.000 0.000 Band Neutrophils % Not Reportable Nucleated RBC % 0.0 0.0 Platelet Estimate Increased Anisocytosis 1+ Schistocytes None seen PT 14.5 INR 1.1 APTT 33.3 Sodium 140 137 Potassium 3.8 4.0 Chloride 105 105 Carbon Dioxide 21 L 22 Anion Gap 14 H 10 BUN 16 13 Creatinine 0.62 L 0.62 L Estim Creat Clear Calc 74 74 Estimated GFR > 60 > 60 Glucose 110 84 Lactic Acid 0.9 Calcium 9.3 9.0 Total Bilirubin 0.5 AST 23 ALT 17 Alkaline Phosphatase 101 Total Protein 7.9 Albumin 4.2 ASA Classification/Sedation ASA Classification/Sedation ASA Class: III Emergent: No Risks: Risks, benefits and alternatives explained and patient/family accepted plan for sedation. Patient re-evaluated immediately prior to sedation.
--- NOTE | 2024-09-02 12:29 | P.PNGS_ITS ---
Progress Note: A&P Assessment and Plan (1) Acute appendicitis with generalized peritonitis and abscess: Code(s): K35.219 - Acute appendicitis with generalized peritonitis, with abscess, unspecified as to perforation Status: Acute Assessment and Plan: * S/p percutaneous drainage today. WBC count trending down. Abdominal pain improved. * Will start a clear liquid diet * Continue IV Zosyn * Repeat labs tomorrow * Encourage getting up to the chair and ambulating today Plan Discussed patient's case and plan of care with Dr. Jones. Subjective Subjective Date/Time Seen: 09/02/24 12:29 Patient reports: no new complaints and afebrile (Tmax 99.9F last night) Interval history: Patient reports her abdominal pain has improved. She is not having any nausea or vomiting. She is still getting IV morphine, which seems to be helping her abdominal pain. She had the percutaneous drainage this morning. She is passing flatus, but no BM since admission. She reports very small intermittent stools over the past 2 weeks without a good bowel movement in over 2 weeks. Exam Const: General: comfortable and no acute distress Orientation/consciousness: patient oriented x3 GI: Inspection: distended GI Palp: Yes Soft to palpation, Yes Tenderness to palpation present (GI) (Diffusely tender) and Yes Guarding due to palpation present (GI) Auscultation: Hypoactive bowel sounds present Other: Right lower quadrant percutaneous drain with thick acosta/bloody purulent drainage Objective Data Vital Signs Vital Signs: Vital Signs - 24 hr 09/01/24 14:27 09/01/24 21:24 09/02/24 05:21 Temperature 99.9 F H 98.9 F Pulse Rate 80 87 84 Respiratory Rate 18 16 14 Blood Pressure 118/66 111/61 118/64 Pulse Oximetry 98 97 97 Oxygen Delivery Oxygen Flow Rate 09/02/24 08:00 09/02/24 08:26 09/02/24 08:30 Temperature Pulse Rate 82 87 Respiratory Rate 13 14 Blood Pressure 106/53 L 109/51 L Pulse Oximetry 100 99 Oxygen Delivery Room Air Nasal Cannula Nasal Cannula Oxygen Flow Rate 2 2 09/02/24 08:35 09/02/24 08:40 09/02/24 08:45 Temperature Pulse Rate 85 82 78 Respiratory Rate 17 14 14 Blood Pressure 101/56 L 98/52 L 104/53 L Pulse Oximetry 99 99 99 Oxygen Delivery Nasal Cannula Nasal Cannula Nasal Cannula Oxygen Flow Rate 2 2 2 09/02/24 08:50 09/02/24 08:55 09/02/24 09:00 Temperature Pulse Rate 83 78 81 Respiratory Rate 10 L 12 12 Blood Pressure 111/51 L 104/63 107/57 L Pulse Oximetry 99 99 99 Oxygen Delivery Nasal Cannula Nasal Cannula Nasal Cannula Oxygen Flow Rate 2 2 2 Intake/Output Intake/Output: Intake & Output 08/30/24 08/31/24 09/01/24 09/02/24 23:59 23:59 23:59 23:59 Intake Total 150 1000 Balance 150 1000 Meds/Results Medications: Active Medications Generic Name Dose Route Start Last Admin Trade Name Freq PRN Reason Stop Dose Admin Acetaminophen 1,000 mg 09/01/24 14:24 Acetaminophen 500 Mg Tablet PO Q6H PRN Mild Pain (1-3) or Fever Albuterol 2 puff 09/01/24 17:29 Albuterol Sulfate (*Sp) Aerosol 1 Puff INHALATION Q6HRT PRN shortness of breath or wheezing Piperacillin/Tazobactam/Dextrose 3.375 gm in 50 mls @ 100 mls/hr 09/01/24 18:00 09/02/24 04:35 Zosyn 3.375 Gm/Ns 50 Ml IVPB 100 mls/hr Q6H [facility] Administration Sodium Chloride 1,000 mls @ 100 mls/hr 09/01/24 14:25 09/02/24 02:45 Normal Saline Iv IV CONT 100 mls/hr .Q10H [facility] Administration Morphine Sulfate 4 mg 09/01/24 18:00 09/02/24 09:28 Morphine Sulfate (*Crx) 4 Mg/Ml Inj IV PUSH 4 mg Q4H PRN Administration Pain Rated 7-10 Morphine Sulfate 2 mg 09/01/24 14:24 Morphine Sulfate (*Crx) 2 Mg/Ml Inj IV PUSH Q4H PRN Pain Rated 4-6 Radiology Results: ITS Impressions Catheter Placement CT 09/02/24 09:44 IMPRESSION: 1. Successful CT-guided right lower quadrant abscess drainage catheter placement. 2. 50 mL fluid was sent for aerobic and anaerobic cultures. 3. The catheter will be managed by Dr. Ibanez. Labs Labs: Laboratory Results - last 24 hr 09/01/24 09/02/24 09/02/24 10:50 05:48 07:24 WBC 21.9 H RBC 3.75 L Hgb 11.2 L Hct 34.6 L MCV 92.3 MCH 29.9 MCHC 32.4 RDW 13.5 Plt Count 401 H MPV 9.2 Immature Gran % (Auto) 1.6 H Neut % (Auto) 82.0 H Lymph % (Auto) 10.6 L [place] % (Auto) 5.2 Eos % (Auto) 0.3 Baso % (Auto) 0.3 Lymph # (Auto) 2.31 [place] # (Auto) 1.1 H Eos # (Auto) 0.1 Baso # (Auto) 0.1 Abs Immat Gran (auto) 0.34 H Absolute Neuts (auto) 17.9 H Absolute Nucleated RBC 0.000 Nucleated RBC % 0.0 PT 14.5 INR 1.1 APTT 33.3 Sodium 137 Potassium 4.0 Chloride 105 Carbon Dioxide 22 Anion Gap 10 BUN 13 Creatinine 0.62 L Estim Creat Clear Calc 74 Estimated GFR > 60 Glucose 84 Calcium 9.0
[2024-09-03] MEDS: MORPHINE SULFATE (*CRX) 4 MG/ML INJ IV PUSH ×6 (00:46→21:43)
[2024-09-03] MEDS: PIPERACILLN/TAZ 3.375GM/NS50ML 3.375 GM/50 ML BAG IVPB ×4 (00:47→17:39)
[2024-09-03] MEDS: SODIUM CHLORIDE 0.9% IV 1,000 ML 100 ML IV CONT (03:11)
[2024-09-03 05:00] VITALS: BP 126/73; PULSE 74; RESP 16; TEMP 36.4; O2SAT 100
[2024-09-03 06:40] LABS: Hematocrit 32.2 % (37.0-47.0); Hemoglobin 10.4 g/dL (12.0-15.0); Mean Corpuscular HGB Conc 32.3 g/dl (32-36); Mean Corpuscular Hemoglobin 29.7 pg (26-34); Mean Platelet Volume 9.7 fl (7.4-10.4); Platelet Count Result 401 k/mm3 (150-375); Red Cell Distribution Width 13.3 % (11.5-14.5); White Blood Count 13.8 K/mm3 (4.5-10.0)
[2024-09-03 06:57] LABS: Anion Gap 8 mmol/L (4-12); Blood Urea Nitrogen 7 mg/dL (7-17); Calcium 8.9 mg/dL (8.4-10.2); Carbon Dioxide 26 mmol/L (22-30); Chloride 105 mmol/L (98-107); Estimated CRCL calculation 87 ml/min; Estimated Glomerular Filt Rate > 60; Glucose 108 mg/dL (65-110); Potassium 3.4 mmol/L (3.4-5.0); Sodium 139 mmol/L (137-145)
--- NOTE | 2024-09-03 10:50 | P.PNGS_ITS ---
Progress Note: A&P Assessment and Plan (1) Acute appendicitis with generalized peritonitis and abscess: Code(s): K35.219 - Acute appendicitis with generalized peritonitis, with abscess, unspecified as to perforation Status: Acute Assessment and Plan: * S/p percutaneous drainage. Cultures pending. WBC count trending down. Abdominal pain and exam improving. * Advanced to a full liquid diet * Continue IV Zosyn * Will start MiraLax today Plan Discussed patient's case and plan of care with Dr. Jones. Subjective Subjective Date/Time Seen: 09/03/24 10:50 Patient reports: no new complaints, feels better, pain is less, tolerating liquids well, voiding w/o difficulty and afebrile Interval history: Abdominal pain slowly improving. She was able to get up out of bed and walk in the halls today with much less discomfort. No nausea or vomiting. Tolerating clear liquids. Not passing much gas and no BM still since admission. Exam 2 Const: General: comfortable and no acute distress Orientation/consciousness: patient oriented x3 GI: Inspection: non-distended GI Palp: Yes Soft to palpation (Softer today), Yes Tenderness to palpation present (GI) (Less tender, more lower abdominal tenderness today), Yes Guarding due to palpation present (GI) (Lower abdomen) and No Rebound tenderness present Auscultation: Hypoactive bowel sounds present Objective Data Vital Signs Vital Signs: Vital Signs - 24 hr 09/02/24 14:00 09/02/24 20:41 09/03/24 05:00 Temperature 97.9 F 97.8 F 97.6 F Pulse Rate 94 82 74 Respiratory Rate 20 18 16 Blood Pressure 110/57 L 113/62 126/73 Pulse Oximetry 96 96 100 Intake/Output Intake/Output: Intake & Output 08/31/24 09/01/24 09/02/24 09/03/24 23:59 23:59 23:59 23:59 Intake Total 150 4600 1120 Balance 150 4600 1120 Meds/Results Medications: Active Medications Generic Name Dose Route Start Last Admin Trade Name Freq PRN Reason Stop Dose Admin Acetaminophen 1,000 mg 09/01/24 14:24 Acetaminophen 500 Mg Tablet PO Q6H PRN Mild Pain (1-3) or Fever Albuterol 2 puff 09/01/24 17:29 Albuterol Sulfate (*Sp) Aerosol 1 Puff INHALATION Q6HRT PRN shortness of breath or wheezing Piperacillin/Tazobactam/Dextrose 3.375 gm in 50 mls @ 100 mls/hr 09/01/24 18:00 09/03/24 06:10 Zosyn 3.375 Gm/Ns 50 Ml IVPB Infused Q6H [facility] Infusion Sodium Chloride 1,000 mls @ 50 mls/hr 09/01/24 14:25 09/03/24 03:11 Normal Saline Iv IV CONT 100 mls/hr .Q20H [facility] Administration Morphine Sulfate 4 mg 09/01/24 18:00 09/03/24 09:07 Morphine Sulfate (*Crx) 4 Mg/Ml Inj IV PUSH 4 mg Q4H PRN Administration Pain Rated 7-10 Morphine Sulfate 2 mg 09/01/24 14:24 Morphine Sulfate (*Crx) 2 Mg/Ml Inj IV PUSH Q4H PRN Pain Rated 4-6 Potassium Chloride 20 meq 09/03/24 10:47 Potassium Chloride 20 Meq Er Tablet PO 09/03/24 10:48 ONCE ONE Radiology Results: ITS Impressions Catheter Placement CT 09/02/24 09:44 IMPRESSION: 1. Successful CT-guided right lower quadrant abscess drainage catheter placement. 2. 50 mL fluid was sent for aerobic and anaerobic cultures. 3. The catheter will be managed by Dr. Ibanez. Labs Labs: Laboratory Results - last 24 hr 09/03/24 06:13 WBC 13.8 H RBC 3.50 L Hgb 10.4 L Hct 32.2 L MCV 92.0 MCH 29.7 MCHC 32.3 RDW 13.3 Plt Count 401 H MPV 9.7 Sodium 139 Potassium 3.4 Chloride 105 Carbon Dioxide 26 Anion Gap 8 BUN 7 D Creatinine 0.52 L Estim Creat Clear Calc 87 Estimated GFR > 60 Glucose 108 Calcium 8.9
[2024-09-03] MEDS: POTASSIUM CHLORIDE 20 MEQ ER TABLET PO (11:45)
[2024-09-03] MEDS: polyethylene glycoL 3350 17 GM POWD.PACK PO (11:45)
[2024-09-03 14:00] VITALS: BP 102/60; PULSE 77; RESP 18; TEMP 36.9; O2SAT 98
[2024-09-03 22:00] VITALS: BP 106/55; PULSE 84; RESP 18; TEMP 36.3; O2SAT 97
[2024-09-04] MEDS: PIPERACILLN/TAZ 3.375GM/NS50ML 3.375 GM/50 ML BAG IVPB ×2 (00:38→06:14)
[2024-09-04 06:00] VITALS: BP 93/50; PULSE 74; RESP 18; TEMP 36.5; O2SAT 97
[2024-09-04] MEDS: MORPHINE SULFATE (*CRX) 4 MG/ML INJ IV PUSH (06:18)
[2024-09-04 07:15] LABS: Hematocrit 33.2 % (37.0-47.0); Hemoglobin 10.8 g/dL (12.0-15.0); Mean Corpuscular HGB Conc 32.5 g/dl (32-36); Mean Corpuscular Hemoglobin 29.8 pg (26-34); Mean Corpuscular Volume 91.7 fl (80-100); Mean Platelet Volume 9.6 fl (7.4-10.4); Platelet Count Result 422 k/mm3 (150-375); Red Blood Count 3.62 M/mm3 (4.2-5.4); Red Cell Distribution Width 13.4 % (11.5-14.5); White Blood Count 10.8 K/mm3 (4.5-10.0)
[2024-09-04 07:22] LABS: Anion Gap 9 mmol/L (4-12); Blood Urea Nitrogen 6 mg/dL (7-17); Calcium 9.2 mg/dL (8.4-10.2); Carbon Dioxide 25 mmol/L (22-30); Chloride 105 mmol/L (98-107); Estimated CRCL calculation 89 ml/min; Estimated Glomerular Filt Rate > 60; Glucose 102 mg/dL (65-110); Potassium 3.8 mmol/L (3.4-5.0); Sodium 139 mmol/L (137-145)
--- NOTE | 2024-09-04 11:38 | P.DS_ITS ---
DS: Admitting Diagnosis Discharge Date 09/04/2024 Admitting Diagnosis Acute perforated appendicitis with abscess DS: Discharge Diagnosis Discharge Diagnosis (1) Acute appendicitis with generalized peritonitis and abscess: Code(s): K35.219 - Acute appendicitis with generalized peritonitis, with abscess, unspecified as to perforation Status: Acute (2) Essential (primary) hypertension: Code(s): I10 - Essential (primary) hypertension Status: Acute DS: Summary Hospital Course Reason for hospitalization: Acute perforated appendicitis with abscess Hospital Course: This is a 64-year-old woman who presented to the emergency department on 09/01/2024 with lower abdominal pain that had been present for the past several weeks. She had been having some more intermittent pains for several months but pain became constant about 2 weeks ago. She has also been experiencing fevers and poor appetite. She was found to have a large abscess in the right lower quadrant that was consistent with perforated appendicitis. She was admitted for further treatment and was placed broad-spectrum IV antibiotics. She underwent percutaneous drainage of the abscess by Interventional Radiology on 09/02/2024. The drainage has been monitored and is slowly decreasing. Her white blood count has continued to trend down towards normal and she has remained afebrile. Her appetite has improved and bowels are moving. She has remained hemodynamically stable. Cultures so far growing E coli and Klebsiella. Sensitivities are pending. She will be discharged on 09/04/2024 with 10 more days of Augmentin and Flagyl as well as pain meds. Status at Discharge Functional status at discharge: independent ambulation Overall status at discharge: patient is progressing back to baseline Time Spent with Patient Time attestation: Total time spent providing and/or coordinating discharge services: Time spent: Less than 30 minutes Exam Const: General: comfortable and no acute distress Orientation/consciousness: patient oriented x3 Resp: Effort & Inspection: normal respiratory effort Auscultation: clear to auscultation bilaterally Cardio: Rate: regular rate Rhythm: regular rhythm Heart sounds: S1 normal heart sound present and S2 normal heart sound present GI: Inspection: non-distended and other (Pigtail drain with minimal bloody purulent output) GI Palp: Yes Soft to palpation, Yes Tenderness to palpation present (GI) (Right lower quadrant), No Guarding due to palpation present (GI) and No Rebound tenderness present Auscultation: normal bowel sounds DS: Data Data Completed and Pending Labs on day of discharge: Labs from last 24 hours 09/04/24 06:53 WBC 10.8 H RBC 3.62 L Hgb 10.8 L Hct 33.2 L MCV 91.7 MCH 29.8 MCHC 32.5 RDW 13.4 Plt Count 422 H MPV 9.6 Sodium 139 Potassium 3.8 Chloride 105 Carbon Dioxide 25 Anion Gap 9 BUN 6 L Creatinine 0.51 L Estim Creat Clear Calc 89 Estimated GFR > 60 Glucose 102 Calcium 9.2 Preliminary micro results at discharge 09/02/24 08:57 Anaerobic Culture - Preliminary Abscess Aerobic Culture - Preliminary Escherichia Coli Klebsiella oxytoca 09/01/24 11:29 Blood Culture - Preliminary Blood 09/01/24 10:50 Blood Culture - Preliminary Blood Imaging Radiologist's impression: ITS Impressions Catheter Placement CT 09/02/24 09:44 IMPRESSION: 1. Successful CT-guided right lower quadrant abscess drainage catheter placement. 2. 50 mL fluid was sent for aerobic and anaerobic cultures. 3. The catheter will be managed by Dr. Ibanez. Discharge Plan Discharge Attending physician on discharge: Ozzie Jones Discharging Clinician: Ozzie Jones Patient Disposition: Home Activity: no shower Diet: regular Wound Care Instructions: other - see discharge instructions Discharge Instructions: Drain care * Empty and record drain output daily * Okay to remove bandage every other day, sponge bathe around drain with gentle soap and water, reapply 4 x 4 gauze and tape over drain site * Call office for increasing redness, swelling, or drainage around drain tubing Patient Instructions: Antibiotic Form, Pain Management in Older Adults (GEN) Patient Language: Yoruba Stand Alone Forms: General Discharge Information Follow-up/Referrals: Ozzie Jones DO [Physician] - 09/07/24 Discharge Medications: New hydrocodone-acetaminophen 5-325 mg tablet 1 tablet PO Q4H PRN (Reason: pain) Qty: 10 0RF amoxicillin-pot clavulanate 875-125 mg tablet 1 tablet PO Q8H 10 Days Qty: 30 0RF metronidazole 500 mg tablet 500 mg PO Q8H 10 Days Qty: 30 0RF Continued amoxicillin-pot clavulanate 875-125 mg tablet 1 tablet PO Q8H 10 Days Qty: 30 0RF albuterol sulfate 90 mcg/actuation HFA aerosol inhaler 2 inh inhalation Q6H PRN (Reason: shortness of breath or wheezing) Qty: 8.5 0RF Date of admission: 09/01/24 12:48 Primary Care Provider: Darin Hernandez Admitting Provider: Ozzie Jones Attending physician on admission: Ozzie Jones Condition: Improved
--- NOTE | 2024-09-04 11:53 | P.PNGS_ITS ---
Subjective Subjective Date/Time Seen: 09/04/24 11:53 Interval history: No new complaints today Objective Data Vital Signs Vital Signs: Vital Signs - 24 hr 09/03/24 14:00 09/03/24 22:00 09/04/24 06:00 Temperature 98.4 F 97.3 F L 97.7 F Pulse Rate 77 84 74 Respiratory Rate 18 18 18 Blood Pressure 102/60 106/55 L 93/50 L Pulse Oximetry 98 97 97 Intake/Output Intake/Output: Intake & Output 09/01/24 09/02/24 09/03/24 09/04/24 23:59 23:59 23:59 23:59 Intake Total 150 4600 3800 220 Output Total 65 10 Balance 150 4600 3735 210 Meds/Results Medications: Active Medications Generic Name Dose Route Start Last Admin Trade Name Freq PRN Reason Stop Dose Admin Acetaminophen 1,000 mg 09/01/24 14:24 Acetaminophen 500 Mg Tablet PO Q6H PRN Mild Pain (1-3) or Fever Albuterol 2 puff 09/01/24 17:29 Albuterol Sulfate (*Sp) Aerosol 1 Puff INHALATION Q6HRT PRN shortness of breath or wheezing Piperacillin/Tazobactam/Dextrose 3.375 gm in 50 mls @ 100 mls/hr 09/01/24 18:00 09/04/24 06:43 Zosyn 3.375 Gm/Ns 50 Ml IVPB Infused Q6H [facility] Infusion Sodium Chloride 1,000 mls @ 50 mls/hr 09/01/24 14:25 09/04/24 00:40 Normal Saline Iv IV CONT Not Given .Q20H [facility] Morphine Sulfate 4 mg 09/01/24 18:00 09/04/24 06:18 Morphine Sulfate (*Crx) 4 Mg/Ml Inj IV PUSH 4 mg Q4H PRN Administration Pain Rated 7-10 Morphine Sulfate 2 mg 09/01/24 14:24 Morphine Sulfate (*Crx) 2 Mg/Ml Inj IV PUSH Q4H PRN Pain Rated 4-6 Polyethylene Glycol 17 gm 09/03/24 10:50 09/04/24 09:56 Polyethylene Glycol 3350 17 Gm Powd.Pack PO Not Given [facility] Radiology Results: ITS Impressions Catheter Placement CT 09/02/24 09:44 IMPRESSION: 1. Successful CT-guided right lower quadrant abscess drainage catheter placement. 2. 50 mL fluid was sent for aerobic and anaerobic cultures. 3. The catheter will be managed by Dr. Ibanez. Labs Labs: Laboratory Results - last 24 hr 09/04/24 06:53 WBC 10.8 H RBC 3.62 L Hgb 10.8 L Hct 33.2 L MCV 91.7 MCH 29.8 MCHC 32.5 RDW 13.4 Plt Count 422 H MPV 9.6 Sodium 139 Potassium 3.8 Chloride 105 Carbon Dioxide 25 Anion Gap 9 BUN 6 L Creatinine 0.51 L Estim Creat Clear Calc 89 Estimated GFR > 60 Glucose 102 Calcium 9.2
== END 2024-09-04 13:03 | disposition home or self-care (01) | DRG 373 ==
LOC: ANHED 14:09 → ANH3MEDSUR 14:30
PROVIDERS: Nurse Practitioner Family; Radiology Diagnostic Radiology; Admitting Provider Surgery; Emergency Provider Emergency Medicine; PCP Family Medicine; Visit Provider Surgery
PROC: 0W9G30Z Drainage of Peritoneal Cavity with Drainage Device, Percutaneous Approach (ICD-10-PCS; principal; 2024-09-02 08:00)
DX: K35.211 Acute appendicitis with generalized peritonitis, with perforation and abscess (principal); I10 Essential (primary) hypertension; Z79.51 Long term (current) use of inhaled steroids; Z87.820 Personal history of traumatic brain injury
CPT/HCPCS: 36415; 74177; 75989; 80048; 80053; 83605; 85025; 85027; 85610; 85730; 87040; 87070; 87075; 87186; 87205; 96365; 96375; 99285; A9270; C1729; C1769; J2250; J2270; J2405; J2543; J3010; J7030; J7040; Q9967

== ENCOUNTER 2024-10-05 07:30 | Outpatient (CLI) | payer MEDICARE, SELFPAY ==
--- NOTE | ~2024-10-05 | CT_ITS ---
CT of the Abdomen and Pelvis: Indication: Acute appendicitis Technique: 2.5 mm axial scans were obtained through the abdomen and pelvis following intravenous adm inistration of 100 cc of Omnipaque 350. Dose reduction technique was used on this scan by utilizing a utomated exposure control and iterative reconstruction technique. The dose-length product (DLP) was 3 74.62 mGy-cm. COMPARISON: 09/01/2024 Findings: Scans through the lung bases are unremarkable. The liver, spleen, pancreas, gallbladder, adrenals and kidneys are within normal limits. No evidence of aortic aneurysm. No lymphadenopathy. Appendix is dilated to 14 mm with mild periappendiceal inflammatory stranding. There is a probable pe riappendiceal abscess measuring 3 cm in diameter (axial image 116). Images through the pelvis were performed. Urinary bladder unremarkable. No pelvic mass seen. Impression: Appendicitis with 3 cm periappendiceal abscess. Abscess is significantly decreased in size as compare d to prior exam. Decreased periappendiceal inflammatory change. Reviewed, dictated and finalized at [facility]. Impression: Appendicitis with 3 cm periappendiceal abscess. Abscess is significantly decrea sed in size as compared to prior exam. Decreased periappendiceal inflammatory c hange.
--- OUTSIDE RECORDS SUMMARY | 2024-10-05 07:40 | XMS_ITS | Clinical Summary ---
Author Organization [facility] Address [facility] [place] [address] Care Team Providers Care Sociology Faculty Member Name Role Phone Darin Hernandez MD Primary Care Provider [phone] Source Comments [facility],non-owned Affiliates and Associated Physician Practices is amultiple site organization consisting of ambulatory clinics and hospital sitesin [place], [place], [place] and [place]. This disclosure is being madepursuant to the Care Everywhere program and may not contain all information available regarding this patient. 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
--- OUTSIDE RECORDS SUMMARY | 2024-10-05 07:40 | XMS_ITS | Continuity of Care Document ---
Author Organization [facility] Address [address] [place] [address] [place] [address] Phone Care Team Providers Care Exhaust Emissions Inspector Name Role Phone Dion TOTH, Heath Unavailable Unavailable Allergies, Adverse Reactions, Alerts Substance Reaction Status Criticality No Known Allergies Active No Inform ation Medications Medication Instructions Dosage Effective Dates (start - stop) Status Comments [place] 10 mg-325 mg tablet take 1 by Oral route 4 times every day as needed 1 - Active avoid driving or oepraet machines Ativan 1 mg tablet take 1 tablet by oral route 2 times every day as needed 1 MG - Active avoid drivin g or operate machines losartan 100 mg tablet take 1 tablet (100MG) by oral route every day 100 MG - Active Cymbalta 60 mg capsule,delayed release take 1 capsule (60MG) by oral route every day 60 MG - Active Qsymia 15 mg-92 mg [...] Diagnoses Date Provider Providers Copied on Encounter [facility], [address], [place], [place], [address], tel:[phone] [facility] Medicine No Information 8 Dion Weathers [address], [place], [place], [address] , [place]. [phone] [facility], [address], [address], [place] tel:[phone] [facility] No Information 8 Dion Weathers [address], [address], [place], [place], [address] , [place]. tel:[phone] PREV VISIT, EST, AGE 40-64 [facility], [address], [place], [place], [address], [place] tel:[phone] [facility] Physical (chief complaint) Encounter for general adult medical exam w abnormal findingsEssential (primary) hypertensionGeneral ized anxiety disorderChronic pain syndrome 8 Dion Weathers [address], [place], [place], [address] , [place]. tel:[phone] Referring Provider: Heath Ashley [address], [place], [place], [address]. tel:[phone] OFFICE/OUTPA TIENT VISIT, [facility], [address], [place], [place], [address], [place] tel:[phone] [facility] Medicine weight loss1 (chief complaint) knee pain1 (chief complaint) anxiety1 (chief complaint) toothache1 (chief complaint) Atypical facial painChronic pain syndromeGeneralized anxiety disorderAbnormal weight loss 7 Dion Joe. [address], [place], [place], [address] , [place]. tel:[phone] Referring Provider: Heath Ashley [address], [place], [place], [address]. tel:[phone] OFFICE/OUTPA TIENT VISIT, [facility], [address], [place], [place], [address], [place] tel:[phone] [facility] Medicine anxiety1 (chief complaint) HTN (chief complaint) knee pain1 (chief complaint) obesity1 (chief complaint) HLP (chief complaint) Body mass index (BMI) 32.0-32.9, adultChronic pain syndromeHyperlipide miaEssential (primary) hypertension 7 Dion Joe. [address], [place], [place], [address] , [place]. tel:[phone] Referring Provider: Tena [address], [place], [place], [address]. tel:[phone] OFFICE/OUTPA TIENT VISIT, [facility], [address], [place], [place], [address], [place] tel:[phone] [facility] Medicine HTN (chief complaint) anxiety1 (chief complaint) obeisty1 (chief complaint) nail fungus1 (chief complaint) Dermatophytic onychiaGeneralized anxiety disorderChronic pain syndromeBody mass index (BMI) 35.0-35.9, adult 7 Dion Weathers [address], [place], [place], [address] , [place]. tel:[phone] Referring Provider: Heath Ashley, [address], [place], [place], [address]. tel:[phone] PREV VISIT, EST, AGE 40-64 [facility], [address], [place], [place], [address], [place] tel:[phone] [facility] PHysical (chief complaint) Encounter for general adult medical exam w abnormal findingsEssential (primary) hypertensionGeneral ized anxiety disorderChronic pain syndrome May- 7 Dion Joe. [address], [place], [place], [address] , [place]. tel:[phone] Referring Provider: Tena [address], [place], [place], [address]. tel:[phone] OFFICE/OUTPA TIENT VISIT, [facility], [address], [place], [place], [address], [place] tel:[phone] [facility] knee pain1 (chief complaint) anxiety1 (chief complaint) Chronic pain syndromeGeneralized anxiety disorder 6 Dion Joe. [address], [place], [place], [address] , [place]. tel:[phone] Referring Provider: Tena [address], [place], [place], [address]. tel:[phone] OFFICE/OUTPA TIENT VISIT, [facility], [address], [place], [place], [address], [place] tel:[phone] [facility] knee pain1 (chief complaint) anxiety1 (chief complaint) HTN (chief complaint) Weight loss1 (chief complaint) Generalized anxiety disorderChronic pain syndromeEssential (primary) hypertensionObesity 6 Dion Joe. [address], [place], [place], [address] , [place]. tel:[phone] Referring Provider: Tena [address], [place], [place], [address]. tel:[phone] OFFICE/OUTPA TIENT VISIT, [facility], [address], [place], [place], [address], [place] tel:[phone] [facility] Obesity1 (chief complaint) anxiety1 (chief complaint) knee pain1 (chief complaint) Chronic pain syndromeGeneralized anxiety disorderObesityEsse ntial (primary) hypertension 6 Dion Joe. [address], [place], [place], [address] , [place]. tel:[phone] Referring Provider: Heath Ashley, [address], [place], [place], [address]. tel:[phone] OFFICE/OUTPA TIENT VISIT, [facility], [address], [place], [place], [address], [place] tel:[phone] [facility] chronic pain (chief complaint) anxiety1 (chief complaint) Generalized anxiety disorderPain in unspecified knee 6 Dion Joe. [address], [place], [place], [address] , [place]. tel:[phone] Referring Provider: Tena Patrick [address], [place], [place], [address]. tel:[phone] OFFICE/OUTPA TIENT VISIT, [facility], [address], [place], [place], [address], [place] tel:[phone] [facility] anxiety1 (chief complaint) knee pain1 (chief complaint) Chronic pain syndromeGeneralized Anxiety Disorder 5 Dion Joe. [address], [place], [place], [address] , [place]. tel:[phone] Referring Provider: Tena Patrick [address], [place], [place], [address]. tel:[phone] OFFICE/OUTPA TIENT VISIT, [facility], [address], [place], [place], [address], [place] tel:[phone] [facility] knee pain (chief complaint) HTN (chief complaint) anxiety (chief complaint) Dietary surveillance and counselingPain in joint involving lower legGeneralized anxiety disorderUnspecified essential hypertension Nov- 5 Dion Weathers [address], [address], [place], [place], [address] , [place]. tel:[phone] Referring Provider: Tena [address], [place], [place], [address]. tel:[phone] OFFICE/OUTPA TIENT VISIT, [facility], [address], [place], [place], [address], [place] tel:[phone] [facility] knee pain (chief complaint) anxiety (chief complaint) Dietary surveillance and counselingPain in joint involving lower legGeneralized anxiety disorder 5 Dion Weathers [address], [place], [place], [address] , [place]. tel:[phone] Referring Provider: Tena Patrick [address], [place], [place], [address]. tel:[phone] OFFICE/OUTPA TIENT VISIT, [facility], [address], [place], [place], [address], [place] tel:[phone] [facility] knee pain (chief complaint) anxiety (chief complaint) Pain in joint involving lower legGeneralized anxiety disorderDietary surveillance and counseling May- 0 5 Dion M[address], [place], [place], [address] , [place]. tel:[phone] Referring Provider: Tena Patrick [address], [place], [place], [address]. tel:[phone] OFFICE/OUTPA TIENT VISIT, [facility], [address], [place], [address], [place] tel:[phone] [facility] cough (chief complaint) knee pain (chief complaint) HTN (chief complaint) anxiety (chief complaint) Dietary surveillance and counselingHypertens ion, UnspecifiedPain in joint involving lower legGeneralized anxiety disorderBronchitis, Acute 4 Dion Weathers [address], [place], [place], [address] , [place]. [phone] Referring Provider: Heath Ashley, [address], [place], [place], [address]. tel:[phone] OFFICE/OUTPA TIENT VISIT, [facility], [address], [place], [address], [place] [phone] [facility] HLP (chief complaint) knee pain (chief complaint) anxiety (chief complaint) Dietary surveillance and counselingHypertens ion, UnspecifiedPain in joint involving lower legMajor depressive affective disorder, single episode, mild degree Sep- 4 Dion Joe. [address], [place], [place], [address] , [place]. [phone] Referring Provider: Heath Ashley, [address], [place], [place], [address]. tel:[phone] OFFICE/OUTPA TIENT VISIT, [facility], [address], [place], [place], [address], [place] tel:[phone] [facility] knee pain (chief complaint) anxiety (chief complaint) Generalized anxiety disorderPain in joint involving lower leg Chad- 4 Dion Joe. [address], [place], [place], [address] , [place]. tel:[phone] Referring Provider: Heath Ashley, [address], [place], [place], [address]. tel:[phone] OFFICE/OUTPA TIENT VISIT, [facility], [address], [place], [address], [place] tel:[phone] [facility] KNee pain (chief complaint) anxiety (chief complaint) Dietary surveillance and counselingCHRONIC PAIN NECMajor depressive affective disorder, single episode, mild degree Feb-2 4 Dion Joe. [address], [place], [place], [address] , [place]. tel:[phone] Referring Provider: Tena Patrick [address], [place], [place], [address]. tel:[phone] OFFICE/OUTPA TIENT VISIT, [facility], [address], [place], [place], [address], [place] tel:[phone] [facility] Knee pain (chief complaint) anxiety (chief complaint) HTN (chief complaint) Dietary surveillance and counselingCHRONIC PAIN NECHypertension, UnspecifiedGenerali zed anxiety disorder Mar- 3 Dion Joe. [address], [place], [place], [address] , [place]. tel:[phone] Referring Provider: Heath Ashley, [address], [place], [place], [address]. tel:[phone] OFFICE/OUTPA TIENT VISIT, [facility], [address], [place], [address], [place] [phone] [facility] knee pain (chief complaint) HTN (chief complaint) anxiety (chief complaint) Dietary surveillance and counselingHypertens ion, UnspecifiedGenerali zed anxiety disorderPain in joint involving lower leg Nov- 3 Dion Joe. [address], [place], [address] , [place]. tel:[phone] Referring Provider: Tena Patrick [address], [place], [address]. tel:[phone] OFFICE/OUTPA TIENT VISIT, [facility], [address], [place], [place], [address], [place] tel:[phone] [facility] hand pain (chief complaint) anxiety (chief complaint) HTN (chief complaint) KNee pain (chief complaint) Dietary surveillance and counselingHypertens ion, UnspecifiedCHRONIC PAIN NECGeneralized anxiety disorder Aug- 3 Dion Joe. [address], [place], [place], [address] , [place]. tel:[phone] Referring Provider: Tena Patrick [address], [place], [place], [address]. tel:[phone] OFFICE/OUTPA TIENT VISIT, [facility], [address], [place], [place], [address], [place] tel:[phone] [facility] knee pain (chief complaint) HTN (chief complaint) anxiety (chief complaint) Dietary surveillance and counselingHypertens ion, UnspecifiedPain in joint involving lower legGeneralized anxiety disorder 3 Ashley Heath. [address], [place], [place], [address] , [place]. tel:[phone] OFFICE/OUTPA TIENT VISIT, [facility], [address], [place], [place], [address], [place] tel:[phone] [facility] knee pain (chief complaint) anxiety (chief complaint) HTN (chief complaint) Dietary surveillance and counselingHypertens ion, UnspecifiedCHRONIC PAIN NECMajor depressive affective disorder, single episode, mild degree 2 Dion Joe. [address], [place], [place], [address] , [place]. tel:[phone] Family History Family Member Type Diagnosis Age [...] onychia) ordered Referral Referred To: Donny Crane [address] [place], [phone] Ordered: Referrals: Donny Crane. 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 Pt denies any worsneing [...]
[2024-10-05 08:15] LABS: Estimated Glomerular Filt Rate > 60
== END 2024-10-05 07:31 | disposition home or self-care (01) ==
LOC: ANHIMG 07:38
PROVIDERS: PCP Family Medicine; Visit Provider Surgery
DX: K35.219 Acute appendicitis with generalized peritonitis, with abscess, unspecified as to perforation (principal)
CPT/HCPCS: 74177; Q9967

== ENCOUNTER 2024-10-27 01:48 | Day surgery (SDC) | payer MEDICARE, SELFPAY ==
[2024-10-22 10:47] VITALS: BMI 28.4
--- NOTE | 2024-10-22 10:55 | PC.NURSE ---
Report to the Outpatient Waiting Room, entrance under the green pavilion located off [facility], at time _0930_ on date _10-33-9167_. Planned Procedure Time: _1130_.? Time changes happen often and if your time is changed the preop area will call you the afternoon before. - You and your visitor will be asked to self-screen and do not enter if you have any COVID symptoms. Please call surgeon if you need to reschedule. - A mask is optional within the hospital at this time. Patients may have clear liquids (water, carbonated beverages, clear teas, apple juice) until 3 hours prior to surgery with a maximum of 20 ounces. - No food from midnight until time of surgery and no smoking, or chewing tobacco (or any form of nicotine). No chewing gum, candy or mints. Take only the following medications with a SIP of water on the morning of surgery: ___Albuterol inhaler if needed. DO NOT STOP ANY OF YOUR OTHER PRESCRIPTION MEDICATIONS PRIOR TO SURGERY EXCEPT THE FOLLOWING Hold all vitamins and supplements for 3 days per anesthesiologist. Medications to discontinue per physician Date to take last heoc___[id number]____ Please no make-up, nail french, hairspray, perfume, deodorant, or body powder the day of surgery.? No jewelry (including any body piercings) or valuables the day of surgery, leave them at home.? Please take a shower or bath the night before, or the morning of, surgery with an antibacterial soap.? Wear comfortable, loose fitting clothing. - Jewelry must be removed prior to entering the operating room.? Rings and piercings that are not removed may be cut off. - The hospital will not accept responsibility for valuables.? - Please leave all valuables, including medications, at home the day of surgery. If you are going home after surgery, a licensed seasonal driver must drive you home.? - NO public transportation without another adult if you receive anesthesia. - We recommend that an adult stay with you for 24 hours following discharge. - We also recommend that you do not drive, make important decision, drink alcoholic beverages, or take any drugs that were not prescribed by your health care provider for at least 24 hours after your discharge time. Follow any additional instructions given to you from your surgeon. Telephone instructions given to __Juanitaa___and asked if any additional questions and then verbalized understanding. Patient advised to call surgeon office or pre surgery nurse liaison [phone] if any additional questions.
[2024-10-27] VITALS (9 sets, daily range): BP systolic 119–167; BP diastolic 61–81; PULSE 57–71; RESP 10–20; TEMP 36.2–36.9; O2SAT 99–100
--- OUTSIDE RECORDS SUMMARY | 2024-10-27 01:50 | XMS_ITS | Clinical Summary ---
Author Organization [facility] Address [facility] [place] [address] Care Team Providers Care Diagnostic Assistant Name Role Phone Darin Hernandez MD Primary Care Provider [phone] Source Comments [facility],non-owned Affiliates and Associated Physician Practices is amultiple site organization consisting of ambulatory clinics and hospital sitesin [place], [place], [place] and [place]. This disclosure is being madepursuant to the Care Everywhere program and may not contain all information available regarding this patient. 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 Gender Identity Not on file Sexual Orientation [...] season) 2023 DEPRESSION SCREENING 04/01/2024 INFLUENZA VACCINE (#1) 2024 Respiratory Syncytial Virus (RSV) Vaccine Pt: [...] to complete this topic Insurance [employer] Member Subscriber Plan / Payer ( fective 2018-Present) Name:Juanita Santosa Member ID:[id number] Relation to Subscriber:Self Name:Fanny Santos Subscriber ID:[id number] Payer ID:Not on file Group ID:Not on file Type:Third [employer] Party Liability [phone] Address: [address] Care Teams Diagnostic Assistant Relationship Specialty Start Date End Date Darin Hernandez MD [address] [place] [address] PCP - General Family Medicine 08/05/18
--- OUTSIDE RECORDS SUMMARY | 2024-10-27 01:50 | XMS_ITS | Continuity of Care Document ---
Author Organization [facility] Address [address] [place] [address] [place] [address] Phone Care Team Providers Care Medical Laboratory Technician Name Role Phone Heath Ashley MD Unavailable Unavailable Allergies, Adverse Reactions, Alerts Substance Reaction Status Criticality No Known Allergies Active No Inform ation Medications Medication Instructions Dosage Effective Dates (start - stop) Status Comments [place] 10 mg-325 mg tablet take 1 by [...] capsule (60MG) by oral route every day - Active Procedures Procedure Date PREV VISIT, [...] Diagnoses Date Provider Providers Copied on Encounter [facility], [address], [place], [place], [address], [place] tel:[phone] [facility] No Information 8 Dion Weathers [address], [place], [place], [address] , [place]. [phone] [facility], [address], [place], [place], [address], [place] tel:[phone] [facility] No Information 8 Dion Weathers [address], [place], [place], [address] , [place]. tel:[phone] PREV VISIT, EST, AGE 40-64 [facility], [address], [place], [place], [address], [place] tel:[phone] [facility] Physical (chief complaint) Encounter for general adult medical exam w abnormal findingsEssential (primary) hypertensionGeneral ized anxiety disorderChronic pain syndrome 8 Dion Weathers [address], [place], [place], [address] , [place]. tel:[phone] Referring Provider: Tena Patrick [address], [place], [place], [address]. tel:[phone] OFFICE/OUTPA TIENT VISIT, [facility], [address], [place], [place], [address], [place] tel:[phone] [facility] weight loss1 (chief complaint) knee pain1 (chief complaint) anxiety1 (chief complaint) toothache1 (chief complaint) Atypical facial painChronic pain syndromeGeneralized anxiety disorderAbnormal weight loss 7 Dion Joe. [address], [place], [place], [address] , [place]. tel:[phone] Referring Provider: Tena [address], [place], [place], [address]. tel:[phone] OFFICE/OUTPA TIENT VISIT, [facility], [address], [place], [place], [address], [place] tel:[phone] [facility] anxiety1 (chief complaint) HTN (chief complaint) knee pain1 (chief complaint) obesity1 (chief complaint) HLP (chief complaint) Body mass index (BMI) 32.0-32.9, adultChronic pain syndromeHyperlipide miaEssential (primary) hypertension Dion Joe. [address], [place], [place], [address] , [place]. tel:[phone] Referring Provider: Tena Patrick [facility], [address], [place], [place], [address]. tel:[phone] OFFICE/OUTPA TIENT VISIT, [facility], [address], [place], [place], [address], [place] tel:[phone] [facility] HTN (chief complaint) anxiety1 (chief complaint) obeisty1 (chief complaint) nail fungus1 (chief complaint) Dermatophytic onychiaGeneralized anxiety disorderChronic pain syndromeBody mass index (BMI) 35.0-35.9, adult 7 Dion Joe. [address], [place], [place], [address] , [place]. tel:[phone] Referring Provider: Heath Ashley, [address], [place], [place], [address]. tel:[phone] PREV VISIT, EST, AGE 40-64 [facility], [address], [place], [place], [address], [place] tel:[phone] [facility] PHysical (chief complaint) Encounter for general adult medical exam w abnormal findingsEssential (primary) hypertensionGeneral ized anxiety disorderChronic pain syndrome May- 7 Dion Joe. [address], [place], [place], [address] , [place]. tel:[phone] Referring Provider: Tena Patrick [address], [place], [place], [address]. tel:[phone] OFFICE/OUTPA TIENT VISIT, [facility], [address], [place], [place], [address], [place] tel:[phone] [facility] knee pain1 (chief complaint) anxiety1 (chief complaint) Chronic pain syndromeGeneralized anxiety disorder 6 Dion Joe. [address], [place], [place], [address] , [place]. tel:[phone] Referring Provider: Tena [address], [place], [place], [address]. tel:[phone] OFFICE/OUTPA TIENT VISIT, [facility], [address], [place], [place], [address], [place] tel:[phone] [facility] knee pain1 (chief complaint) anxiety1 (chief complaint) HTN (chief complaint) Weight loss1 (chief complaint) Generalized anxiety disorderChronic pain syndromeEssential (primary) hypertensionObesity Nov- 6 Dion Joe. [address], [place], [place], [address] , [place]. tel:[phone] Referring Provider: Tena Patrick [address], [place], [place], [address]. tel:[phone] OFFICE/OUTPA TIENT VISIT, [facility], [address], [place], [place], [address], [place] tel:[phone] [facility] Obesity1 (chief complaint) anxiety1 (chief complaint) knee pain1 (chief complaint) Chronic pain syndromeGeneralized anxiety disorderObesityEsse ntial (primary) hypertension 6 Dion Joe. [address], [place], [place], [address] , [place]. tel:[phone] Referring Provider: Tena Patrick [address], [place], [place], [address]. tel:[phone] OFFICE/OUTPA TIENT VISIT, [facility], [address], [place], [place], [address], [place] tel:[phone] [facility] chronic pain (chief complaint) anxiety1 (chief complaint) Generalized anxiety disorderPain in unspecified knee 6 Dion Joe. [address], [place], [place], [address] , [place]. tel:[phone] Referring Provider: Tena Patrick [address], [place], [place], [address]. tel:[phone] OFFICE/OUTPA TIENT VISIT, [facility], [address], [place], [place], [address], [place] tel:[phone] [facility] anxiety1 (chief complaint) knee pain1 (chief complaint) Chronic pain syndromeGeneralized Anxiety Disorder 5 Dion Joe. [address], [place], [place], [address] , [place]. tel:[phone] Referring Provider: Tena Patrick [address], [place], [place], [address]. tel:[phone] OFFICE/OUTPA TIENT VISIT, [facility], [address], [place], [place], [address], [place] tel:[phone] [facility] knee pain (chief complaint) HTN (chief complaint) anxiety (chief complaint) Dietary surveillance and counselingPain in joint involving lower legGeneralized anxiety disorderUnspecified essential hypertension 5 Dion Joe. [address], [place], [place], [address] , [place]. [phone] Referring Provider: Tena Patrick [address], [place], [place], [address]. tel:[phone] OFFICE/OUTPA TIENT VISIT, [facility], [address], [place], [place], [address], [place] tel:[phone] [facility] knee pain (chief complaint) anxiety (chief complaint) Dietary surveillance and counselingPain in joint involving lower legGeneralized anxiety disorder 5 Dion Joe. [address], [place], [place], [address] , [place]. tel:[phone] Referring Provider: Tena Patrick [address], [place], [place], [address]. tel:[phone] OFFICE/OUTPA TIENT VISIT, [facility], [address], [place], [place], [address], [place] tel:[phone] [facility] knee pain (chief complaint) anxiety (chief complaint) Pain in joint involving lower legGeneralized anxiety disorderDietary surveillance and counseling 5 Dion Weathers [address], [place], [place], [address] , [place]. [phone] Referring Provider: Tena Patrick [address], [place], [place], [address]. tel:[phone] OFFICE/OUTPA TIENT VISIT, [facility], [address], [place], [place], [address], [place] tel:[phone] [facility] cough (chief complaint) knee pain (chief complaint) HTN (chief complaint) anxiety (chief complaint) Dietary surveillance and counselingHypertens ion, UnspecifiedPain in joint involving lower legGeneralized anxiety disorderBronchitis, Acute 4 Dion Weathers [address], [place], [place], [address] , [place]. tel:[phone] Referring Provider: Heath Ashley, [address], [place], [place], [address]. tel:[phone] OFFICE/OUTPA TIENT VISIT, [facility], [address], [place], [place], [address], [place] tel:[phone] [facility] HLP (chief complaint) knee pain (chief complaint) anxiety (chief complaint) Dietary surveillance and counselingHypertens ion, UnspecifiedPain in joint involving lower legMajor depressive affective disorder, single episode, mild degree Sep-1 4 Dion Joe. [address], [place], [place], [address] , [place]. [phone] Referring Provider: Tena Patrick [address], [place], [place], [address]. tel:[phone] OFFICE/OUTPA TIENT VISIT, [facility], [address], [place], [place], [address], [place] tel:[phone] [facility] knee pain (chief complaint) anxiety (chief complaint) Generalized anxiety disorderPain in joint involving lower leg Chad- 4 Dion Joe. [address], [place], [place], [address] , [place]. [phone] Referring Provider: Tena Patrick [address], [place], [place], [address]. tel:[phone] OFFICE/OUTPA TIENT VISIT, [facility], [address], [place], [place], [address], [place] tel:[phone] [facility] KNee pain (chief complaint) anxiety (chief complaint) Dietary surveillance and counselingCHRONIC PAIN NECMajor depressive affective disorder, single episode, mild degree Feb-2 4 Dion Joe. [address], [place], [place], [address] , [place]. [phone] Referring Provider: Tena Patrick [address], [place], [place], [address]. tel:[phone] OFFICE/OUTPA TIENT VISIT, [facility], [address], [place], [place], [address], [place] tel:[phone] [facility] Knee pain (chief complaint) anxiety (chief complaint) HTN (chief complaint) Dietary surveillance and counselingCHRONIC PAIN NECHypertension, UnspecifiedGenerali zed anxiety disorder Mar- 3 Dion Joe. [address], [place], [place], [address] , [place]. tel:[phone] Referring Provider: Heath Ashley [address], [place], [place], [address]. tel:[phone] OFFICE/OUTPA TIENT VISIT, [facility], [address], [place], [place], [address], [place] tel:[phone] [facility] knee pain (chief complaint) HTN (chief complaint) anxiety (chief complaint) Dietary surveillance and counselingHypertens ion, UnspecifiedGenerali zed anxiety disorderPain in joint involving lower leg Nov- 3 Dion Joe. [address], [place], [place], [address] , [place]. tel:[phone] Referring Provider: Tena Patrick [address], [place], [place], [address]. tel:[phone] OFFICE/OUTPA TIENT VISIT, [facility], [address], [place], [place], [address], [place] tel:[phone] [facility] hand pain (chief complaint) anxiety (chief complaint) HTN (chief complaint) KNee pain (chief complaint) Dietary surveillance and counselingHypertens ion, UnspecifiedCHRONIC PAIN NECGeneralized anxiety disorder Aug- 3 Dion Joe. [address], [place], [place], [address] , [place]. tel:[phone] Referring Provider: Tena Patrick [address], [place], [place], [address]. tel:[phone] OFFICE/OUTPA TIENT VISIT, [facility], [address], [place], [place], [address], [place] tel:[phone] [facility] knee pain (chief complaint) HTN (chief complaint) anxiety (chief complaint) Dietary surveillance and counselingHypertens ion, UnspecifiedPain in joint involving lower legGeneralized anxiety disorder 0 3 Ashley Heath. [address], [place], [place], [address] , [place]. tel:[phone] OFFICE/OUTPA TIENT VISIT, [facility], [address], [place], [place], [address], [place] tel:[phone] [facility] knee pain (chief complaint) anxiety (chief complaint) HTN (chief complaint) Dietary surveillance and counselingHypertens ion, UnspecifiedCHRONIC PAIN NECMajor depressive affective disorder, single episode, mild degree 2 Ashley Heath. [address], [place], [place], [address] , [place]. tel:[phone] Family History Family Member Type Diagnosis Age [...] ordered Referral Referred To: Donny Crane [address] [place], [id number] Ordered: Referrals: Donny Crane. 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 Pt denies any worsneing [...] back on regular dose of cymbalta now. HTN Pt takes losarta . Her BP is ok today. Pt denies any chest pain or headcahe knee pain Location: knee. Additional information: Pt has chronic knee pain. Pt unable to afford mRI or ortho. Pt denies any worsening pain. Pt has sharp pain constantly. Pt denies any knee swelling. knee pain Location: knee. Additional information: Pt [...]
[2024-10-27] MEDS: KETOROLAC 15 MG/ML VIAL (*BKC) IV PUSH (12:10)
[2024-10-27] MEDS: ACETAMINOPHEN 500 MG TABLET 1000 MG PO (12:18)
--- NOTE | 2024-10-27 12:18 | P.PNAN_ITS ---
Anes - Initial Pre Proc Eval Procedure: Operation Date: 10/27/24 13:30 Proposed Procedures p Laparoscopic Appendectomy, Possible open - Ozzie Jones DO Date/Time: 10/27/24 12:18 Surgeon: Ozzie Jones DO Pre Op Diagnosis: acute perforated appendicitis with abscess Patient Data Age: 64 Gender: F Height: 1.57 m Weight: 70.5 kg Last Vital Signs Temp 36.9 C 10/27/24 11:54 Pulse 71 10/27/24 11:54 Resp 18 10/27/24 11:54 BP 135/81 10/27/24 11:54 Pulse Ox 100 10/27/24 11:54 O2 Del Method Room Air 10/27/24 11:54 Allergies Allergy/AdvReac Type Severity Reaction Status Date / Time tramadol Allergy Unknown Swelling Verified 10/22/24 10:45 Home Medications ?Medication ?Instructions ?Recorded ?Confirmed ?Type albuterol sulfate 90 mcg/actuation 2 inh inhalation Q6H PRN shortness 07/27/21 0 10/22/24 Rx aerosol inhaler of breath or wheezing #8.5 grams multivitamin (Daily Multi-Vitamin 1 tablet PO DAILY 10/22/24 10/27/24 History tablet) Patient hx anesthesia problems: none Family hx anesthesia problems: none Results Review: All pre-operative results and documents have been reviewed as part of the pre- operative evaluation. [facility] Past Medical History Medical History BMI 34.0-34.9,adult Traumatic brain injury Family History Family History Other Family history of malignant neoplasm of bone Family history of rheumatoid arthritis Social History Social History Smoking status: Never smoker Alcohol intake: never Substance use: never Substance use type: marijuana Other substance usage details: Gummy at night sometimes. Do You Feel Safe in your Home?: Yes Lack of Transportation: No Lack of Food: Never True Current Housing: I Have Housing Concerned About Future Housing: No Difficulty Paying Gas/Electric Bills: No Difficulty Paying for Meds: No Currently Unemployed: No Education: High School Diploma/GED Difficulty w/ Childcare or Family Care: No Living arrangements: with family Spiritual care concerns: No Anes - Eval Final PreProcedure Day of Procedure 10/27/24 12:18 Patient weight: overweight Heart: regular rate and rhythm Lungs: clear to auscultation Airway: Mallampati scale class II Neurological: alert and oriented Last oral intake: >/= 8 hours ASA classification: III Emergent: no Anesthetic plan: proceed Anesthesia type and monitoring: general ETT and standard monitoring Results Review: All pre-operative results and documents have been reviewed as part of the pre- operative evaluation. Informed Consent: The patient's anesthetic plan and its attendant risks and benefits were discussed with the patient/family/POA. Questions were solicited and answers provided to the satisfaction of the patient/family/POA.
--- NOTE | 2024-10-27 14:31 | WPDHPUPDATE1 ---
History and Physical Update Update Date/Time: 10/27/24 14:31 History and Physical has been reviewed, including an updated exam of the patient. There are NO changes in the patient's condition. Risks, benefits, and alternatives have been discussed and questions answered. Patient agrees to proceed with procedure.
--- NOTE | 2024-10-27 14:31 | PM.IMHP ---
H&P: HPI History of Present Illness Date/Time: 10/27/24 14:31 Chief Complaint: Acute appendicitis Narrative: This is a 64-year-old woman who presents for laparoscopic appendectomy. She has a recent history of acute appendicitis with abscess. The abscess was drained and she recovered from that episode. It is now been almost 2 months but she is still having some occasional pain. She now presents for interval laparoscopic appendectomy. Review of Systems Review of Systems: All systems reviewed & are unremarkable except as noted in HPI and below Constitutional: Constitutional: Denies chills, Denies fever(s), Denies headache(s) and Denies weight loss Eyes: Eyes: Denies change in vision ENT: Denies dizziness, Denies headache(s), Denies neck mass and Denies throat swelling Cardiovascular: Cardiovascular: Denies chest pain, Denies lightheadedness and Denies dyspnea Respiratory: Respiratory: Denies cough, Denies dyspnea and Denies wheezing Gastrointestinal: Gastrointestinal: Denies abdominal pain, Denies change in bowel habits, Denies nausea and Denies vomiting Genitourinary: Genitourinary: Denies hematuria and Denies dysuria Musculoskeletal: Musculoskeletal: Reports as per HPI Integumentary/Breasts: Skin/Breast: Reports as per HPI Neurologic: Denies dizziness and Denies headache(s) Allergic/Immunologic: Allergic/Immunologic: Denies throat swelling and Denies wheezing PMF Past Medical History Medical History BMI 34.0-34.9,adult Traumatic brain injury Family History Family History Other Family history of malignant neoplasm of bone Family history of rheumatoid arthritis Social History Social History Smoking status: Never smoker Alcohol intake: never Substance use: never Substance use type: marijuana Other substance usage details: Gummy at night sometimes. Do You Feel Safe in your Home?: Yes Lack of Transportation: No Lack of Food: Never True Current Housing: I Have Housing Concerned About Future Housing: No Difficulty Paying Gas/Electric Bills: No Difficulty Paying for Meds: No Currently Unemployed: No Education: High School Diploma/GED Difficulty w/ Childcare or Family Care: No Living arrangements: with family Spiritual care concerns: No Meds Home Medications and Allergies Home Medications ?Medication ?Instructions ?Recorded ?Confirmed ?Type albuterol sulfate 90 mcg/actuation 2 inh inhalation Q6H PRN shortness 07/27/21 10/22/24 Rx aerosol inhaler of breath or wheezing #8.5 grams multivitamin (Daily Multi-Vitamin 1 tablet PO DAILY 10/22/24 10/27/24 History tablet) Allergies Allergy/AdvReac Type Severity Reaction Status Date / Time tramadol Allergy Unknown Swelling Verified 10/22/24 10:45 Vital Signs Vital Signs - 24 hr 10/27/24 11:54 Temperature 98.5 F Pulse Rate 71 Respiratory Rate 18 Blood Pressure 135/81 Pulse Oximetry 100 Oxygen Delivery Room Air Exam Const: General: no acute distress and alert Orientation/consciousness: patient oriented x3 HENMT: Head: normocephalic and atraumatic Ears: hearing grossly normal bilaterally Face/Nose/Sinus: Normal nares present Mouth: Yes Normal oral and palatal mucosa present Eyes: Periorbital: periorbital findings normal Sclera: sclerae normal EOM: EOMs intact bilaterally Neck: Neck: normal visual inspection, no lymphadenopathy and trachea midline Chest: Chest palpation & inspection: normal inspection of the chest Resp: Effort & Inspection: normal respiratory effort Auscultation: clear to auscultation bilaterally Cardio: Jugular venous distension: no JVD Rate: regular rate Rhythm: regular rhythm Heart sounds: S1 normal heart sound present and S2 normal heart sound present Peripheral pulses: Peripheral pulses 2+ throughout GI: Inspection: normal to inspection GI Palp: Yes Soft to palpation, No Tenderness to palpation present (GI), No Guarding due to palpation present (GI) and No Rebound tenderness present Percussion: Yes normal to percussion Auscultation: normal bowel sounds : General: Yes no CVA tenderness Back/Spine/Pelvis: Back: no CVA tenderness Neuro: General: patient oriented x3, no focal motor deficits and CN's II-XI intact bilaterally Cognition (Neuro): normal cognition Speech: normal speech Motor exam (neuro): 5/5 motor strength present throughout Extrem: General: capillary refill normal and no clubbing, cyanosis or edema Assessment and Plan Assessment and plan (1) Acute appendicitis with generalized peritonitis and abscess: Code(s): K35.219 - Acute appendicitis with generalized peritonitis, with abscess, unspecified as to perforation Status: Acute Assessment and Plan: I have recommended laparoscopic appendectomy, possible open. I have discussed the procedure, risks, benefits, and alternatives with the patient. All questions answered. No changes since last seen in office.
[2024-10-27] MEDS: ceFAZolin 2 GM in SODIUM CHLORIDE 0.9% IV 50 ML 100 ML IVPB (14:49)
[2024-10-27] MEDS: BUPIVACAINE/EPINEPHRINE 0.5% 50 ML VIAL 30 ML INFILTRATE (15:17)
--- NOTE | 2024-10-27 15:23 | S_PTH ---
PATIENT: Fanny Santos LOC: [facility] U#:[id number] AGE/SX: 64/F ROOM: RE10/27/[address]: Ozzie Jones DO : 1960 BED: DIS: 10/27/2024 SPEC #: [id number] RECD: 10/28/24 07:45 STATUS: AD REQ #: [id number] HONG: 10/27/24 15:[address]: Ozzie Jones DEPT: [facility] Surgical RECD BY: Daphne Sr ENTERED: 10/28/24 07:45 SP TYPE: Surgical OTHR DR: Darin Hernandez MD Tissues: A - Appendix Procedures: Hematoxylin and Eosin Stain Gross and Microscopic Level 3
--- NOTE | 2024-10-27 15:52 | W.PM.PROC2 ---
Procedure Note - Detailed Date of Procedure 10/27/24 Pre-op Diagnosis acute perforated appendicitis with abscess Post-op Diagnosis Same Procedure Performed Laparoscopic appendectomy Surgeon Ozzie Jones, DO Anesthesia General and Local (0.5% bupivicaine with epinephrine) Indications This is a 64-year-old woman who presented with a prior history of acute appendicitis with abscess. She had undergone percutaneous drainage and about 4 weeks of antibiotics. The drain was eventually removed and she completed the antibiotics as prescribed. Follow-up CT was performed and there was still a residual 3 cm abscess. Discussions were made with the patient about treatment options and decision was made to proceed with laparoscopic appendectomy, possible open. Findings Laparoscopic appendectomy was performed. The appendix still had some chronic induration and dilation. There were some periappendiceal adhesions as well. There did appear to be firm indurated tissue right around the cecum but no evidence of a residual abscess. The cecum also appeared somewhat firm but this was difficult to determine whether there could be a mass or this was just residual inflammation. The base of the appendix appeared healthy and viable. The appendix was removed and sent to the lab for pathology. Description of Procedure Procedure as well as risks, benefits, and alternatives were explained to the patient. The patient agreed to proceed. Written consent was obtained and placed in chart prior to procedure. The patient was brought back to surgical suite. She was placed supine on operating table. Time-out was done to confirm the patient and procedure. The patient was then intubated by the Anesthesia Department. Her abdomen was prepped and draped in sterile fashion using chlorhexidine prep. A 5 mm incision was made just to the left of the patient's umbilicus and a 5 mm Optiview trocar was advanced through the abdominal layers under direct visualization. Once inside the peritoneal cavity, carbon dioxide insufflation was used to create a pneumoperitoneum. The camera was inserted and the abdomen was inspected. No immediate abnormalities were identified. The patient was then placed in slight Trendelenburg position and rotated to the left. A 5 mm incision was made in the suprapubic region in midline and a 5 mm trocar was inserted under direct visualization. A 12 mm incision was made in the left lower quadrant and a 12 mm trocar was inserted under direct visualization. The right lower quadrant was carefully inspected. The cecum was identified and then this was traced back to the appendix. The appendix was identified and grasped at the mesoappendix and lifted anteriorly. Careful blunt dissection was carried out at the base of the appendix through the mesoappendix using a [place] grasper. An Endo-REGINA 45 mm blue load stapler was then advanced across the base of the appendix and clamped and fired. A white reload was then clamped across the mesoappendix and fired. This freed up our appendix completely. It was then placed in an EndoCatch bag and removed through the left lower quadrant port. The staple lines were then inspected. Hemostasis appeared adequate and the staple lines appeared secure. The area was then irrigated with sterile saline. The pelvis was then carefully inspected and irrigated with sterile saline as well and the remainder of the abdomen was carefully inspected. The patient was then flattened out in bed. One final inspection was made around the abdominal cavity and no other abnormalities were seen. The left lower quadrant port was removed and a Ruslan-Gage cone was used to approximate the fascia with an 0 Vicryl simple interrupted suture. The remaining ports were then removed under direct visualization. The camera was removed and the pneumoperitoneum was released. 0.5% bupivacaine with epinephrine was infiltrated locally around each of the incisions. The skin of the incisions was then approximated using 4-0 Monocryl subcuticular suture and Exofin glue was applied on top. The patient was then awakened from anesthesia, extubated, and transferred to Recovery. Estimated Blood Loss 20 Urine Output 300 Pathology Yes (Appendix) Complications No immediate complications Condition Stable Disposition Same day [facility] Billing Surgery - Charge Forward: Surgery Billing
[2024-10-27] MEDS: LACTATED RINGERS 1,000 ML 30 ML IV CONT (15:54)
[2024-10-27] MEDS: fentaNYL CITRATE INJ (*CRX) 100 MCG/2 ML VIAL 25 MCG IV PUSH ×4 (16:27→16:47)
[2024-10-27] MEDS: oxyCODONE HCL (*CRX) 5 MG TAB IR PO (17:30)
== END 2024-10-27 17:50 | disposition home or self-care (01) ==
PROVIDERS: PCP Family Medicine; Visit Provider Surgery
PROC: 0DTJ4ZZ Resection of Appendix, Percutaneous Endoscopic Approach (ICD-10-PCS; CPT 44970; principal; 2024-10-27 13:30)
DX: K36 Other appendicitis (principal); K66.0 Peritoneal adhesions (postprocedural) (postinfection); F12.90 Cannabis use, unspecified, uncomplicated; Z79.51 Long term (current) use of inhaled steroids; Z80.8 Family history of malignant neoplasm of other organs or systems
CPT/HCPCS: 44970; 88304; J0690; A9270; J1100; J1885; J2003; J2250; J2405; J2704; J3010; J7120

== ENCOUNTER 2025-01-06 01:04 | Day surgery (SDC) | payer MEDICARE, SELFPAY ==
[2024-12-28 16:00] VITALS: BMI 27.5
--- OUTSIDE RECORDS SUMMARY | 2025-01-06 01:24 | XMS_ITS | Clinical Summary ---
Author Organization [facility] Address [facility] [place] [address] Care Team Providers Care Principal Database Developer Name Role Phone Darin Hernandez MD Primary Care Provider [phone] Source Comments [facility],non-owned Affiliates and Associated Physician Practices is amultiple site organization consisting of ambulatory clinics and hospital sitesin [place], [place], [place] and [place]. This disclosure is being madepursuant to the Care Everywhere program and may not contain all information available regarding this patient. 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 Gender Identity Not on file Sexual Orientation [...] SCREENING 1959 LIPID TESTING 1959 MAMMOGRAM 1959 MEDICARE AWV 12 MONTHS 1959 HIV SCREENING 1974 HEPATITIS C SCREENING 04/25/1977 DTAP/TDAP/TD VACCINES (1 - Tdap) 1978 PAP SMEAR 1980 PNEUMOCOCCAL VACCINE 50+ (1 of 1 - PCV) 2009 ZOSTER VACCINE (1 of 2) 2009 DEPRESSION SCREENING 04/01/2024 COVID-19 VACCINE (1 - 2023-2 5 season) 2024 INFLUENZA VACCINE (#1) 2024 Respiratory Syncytial Virus [...] patient's age to complete this topic Insurance [employer] SELF PAY NO INSURANCE Member Subscriber Plan / Payer (Ef fective for All Dates) Name:Fanny Daugherty Member ID:Not on file Relation to Subscriber:Not on file Name:FANNY DAUGHERTY Subscriber ID:Not on file (Home) Address: [address] [address] Payer ID:Not on file Group ID:Not on file Type:Self Pay Address: [place], [place] [employer] Member Subscriber Plan / Payer (Ef fective 2018-Present) Name:Fanny Daugherty Member ID:[id number] Relation to Subscriber:Self Name:Fanny Daugherty Subscriber ID:[id number] Payer ID:Not on file Group ID:Not on file Type:[employer] [phone] Address: [address] [place] [id number] [facility] Care Teams Principal Database Developer Relationship Specialty Start Date End Date Darin Hernandez MD [address] [place] [address] PCP - General Family Medicine 08/05/18
--- NOTE | 2025-01-06 07:07 | P.PNAN_ITS ---
Anes - Initial Pre Proc Eval Procedure: Operation Date: 01/06/25 10:00 Proposed Procedures p Screening Colonoscopy - Ozzie Jones DO Date/Time: 01/06/25 07:07 Surgeon: Ozzie Jones DO Pre Op Diagnosis: Screening for malignant neoplasm of colon Patient Data Age: 64 Gender: F Height: 1.6 m Weight: 70.4 kg Allergies Allergy/AdvReac Type Severity Reaction Status Date / Time tramadol Allergy Unknown Swelling Verified 01/06/25 08:52 Home Medications ?Medication ?Instructions ?Recorded ?Confirmed ?Type albuterol sulfate 90 mcg/actuation 2 inh inhalation Q6 H PRN shortness 07/27/21 12/28/24 Rx aerosol inhaler of breath or wheezing #8.5 g daisy multivitamin (Daily Multi-Vitamin 1 tablet PO DAILY 01/06/25 History tablet) CBD/THC/CBN 1 gummy PO HS PRN insomnia 0 12/28/24 12/28/24 History acetaminophen 500 mg capsule 1,000 mg PO Q6H PRN pain 12/28/24 12/28/24 History diphenhydramine-acetaminophen 2 tablet PO HS PRN insom toño 12/28/24 12/28/24 History folic acid-vitamin B6-vit B12 PO 12/28/24 History ibuprofen 200 mg tablet (Advil) 200 mg PO Q6H PRN pain 12/28/24 12/28/24 History magnesium L-threonate 2 cap PO HS 12/28/24 5 History omega-3 fatty acids-vitamin E 1 cap PO DAILY 12/28/24 01/06/25 History rosabella moringa 2 cap PO DAILY 12/28/24 1011/23 History Patient hx anesthesia problems: none Family hx anesthesia problems: none Results Review: All pre-operative results and documents have been reviewed as part of the pre- operative evaluation. [facility] Past Medical History Medical History (Updated 01/06/25 @ 07:07 by Ousmane Cavazos DO) Epilepsy as a child Anxiety disorder, unspecified Essential (primary) hypertension BMI 34.0-34.9,adult Traumatic brain injury Surgical History Surgical History (Updated 11/13/24 @ 08:32 by Toño Fonseca CMA) History of laparoscopic appendectomy 10/27/2024 Laparoscopic appendectomy Family History Family History Other Family history of malignant neoplasm of bone Family history of rheumatoid arthritis Social History Social History Smoking status: Never smoker Alcohol intake: never Substance use: never Substance use type: marijuana Other substance usage details: Gummy at night sometimes. Do You Feel Safe in your Home?: Yes Lack of Transportation: No Lack of Food: Never True Current Housing: I Have Housing Concerned About Future Housing: No Difficulty Paying Gas/Electric Bills: No Difficulty Paying for Meds: No Currently Unemployed: No Education: High School Diploma/GED Difficulty w/ Childcare or Family Care: No Living arrangements: with family Spiritual care concerns: No Anes - Eval Final PreProcedure Day of Procedure 01/06/25 07:07 Patient weight: overweight Heart: regular rate and rhythm Lungs: clear to auscultation Airway: Mallampati scale class II Neurological: alert and oriented Last oral intake: >/= 8 hours ASA classification: II Emergent: no Anesthetic plan: proceed Anesthesia type and monitoring: general GIVS and standard monitoring Results Review: All pre-operative results and documents have been reviewed as part of the pre- operative evaluation. Informed Consent: The patient's anesthetic plan and its attendant risks and benefits were discussed with the patient/family/POA. Questions were solicited and answers provided to the satisfaction of the patient/family/POA.
[2025-01-06 08:53] VITALS: BP 138/76; PULSE 66; RESP 20; TEMP 36.2; O2SAT 99; BMI 27.2
[2025-01-06] MEDS: LACTATED RINGERS 1,000 ML 150 ML IV CONT (09:00)
--- NOTE | 2025-01-06 10:01 | PM.IMHP ---
H&P: HPI History of Present Illness Date/Time: 01/06/25 10:01 Chief Complaint: screening for colorectal cancer Narrative: this is a 64-year-old woman who presents for her 1st colonoscopy. She denies any hematochezia or melena. She denies family history of colon cancer. She did have a complicated course of appendicitis several months ago and had an abscess which was drained and then subsequently had a laparoscopic appendectomy. Review of Systems Review of Systems: All systems reviewed & are unremarkable except as noted in HPI and below Constitutional: Constitutional: Denies chills, Denies fever(s), Denies headache(s) and Denies weight loss Eyes: Eyes: Denies change in vision ENT: Denies dizziness, Denies headache(s), Denies neck mass and Denies throat swelling Cardiovascular: Cardiovascular: Denies chest pain, Denies lightheadedness and Denies dyspnea Respiratory: Respiratory: Denies cough, Denies dyspnea and Denies wheezing Gastrointestinal: Gastrointestinal: Denies abdominal pain, Denies change in bowel habits, Denies nausea and Denies vomiting Genitourinary: Genitourinary: Denies hematuria and Denies dysuria Musculoskeletal: Musculoskeletal: Reports as per HPI Integumentary/Breasts: Skin/Breast: Reports as per HPI Neurologic: Denies dizziness and Denies headache(s) Allergic/Immunologic: Allergic/Immunologic: Denies throat swelling and Denies wheezing PMF Past Medical History Medical History (Updated 01/06/25 @ 07:07 by Ousmane Cavazos DO) Epilepsy as a child Anxiety disorder, unspecified Essential (primary) hypertension BMI 34.0-34.9,adult Traumatic brain injury Surgical History Surgical History (Updated 11/13/24 @ 08:32 by Yesica Fonseca CMA) History of laparoscopic appendectomy 10/27/2024 Laparoscopic appendectomy Family History Family History Other Family history of malignant neoplasm of bone Family history of rheumatoid arthritis Social History Social History Smoking status: Never smoker Alcohol intake: never Substance use: never Substance use type: marijuana Other substance usage details: Gummy at night sometimes. Do You Feel Safe in your Home?: Yes Lack of Transportation: No Lack of Food: Never True Current Housing: I Have Housing Concerned About Future Housing: No Difficulty Paying Gas/Electric Bills: No Difficulty Paying for Meds: No Currently Unemployed: No Education: High School Diploma/GED Difficulty w/ Childcare or Family Care: No Living arrangements: with family Spiritual care concerns: No Meds Home Medications and Allergies Home Medications ?Medication ?Instructions ?Recorded ?Confirmed ?Type albuterol sulfate 90 mcg/actuation 2 inh inhalation Q6H PRN shortness 07/27/21 12/28/24 Rx aerosol inhaler of breath or wheezing #8.5 grams multivitamin (Daily Multi-Vitamin 1 tablet PO DAILY 10/22/24 01/06/25 History tablet) CBD/THC/CBN 1 gummy PO HS PRN insomnia 12/28/24 12/28/24 History acetaminophen 500 mg capsule 1,000 mg PO Q6H PRN pain 12/28/24 12/28/24 History diphenhydramine-acetaminophen 2 tablet PO HS PRN insomnia 12/28/24 12/28/24 History folic acid-vitamin B6-vit B12 PO 12/28/24 History ibuprofen 200 mg tablet (Advil) 200 mg PO Q6H PRN pain 12/28/24 12/28/24 History magnesium L-threonate 2 cap PO HS 12/28/24 01/06/25 History omega-3 fatty acids-vitamin E 1 cap PO DAILY 12/28/24 01/06/25 History rosabella moringa 2 cap PO DAILY 12/28/24 01/06/25 History Allergies Allergy/AdvReac Type Severity Reaction Status Date / Time tramadol Allergy Unknown Swelling Verified 01/06/25 08:52 Vital Signs Vital Signs - 24 hr 01/06/25 08:53 Temperature 97.1 F L Pulse Rate 66 Respiratory Rate 20 Blood Pressure 138/76 Pulse Oximetry 99 Oxygen Delivery Room Air Exam Const: General: no acute distress and alert Orientation/consciousness: patient oriented x3 HENMT: Head: normocephalic and atraumatic Ears: hearing grossly normal bilaterally Face/Nose/Sinus: Normal nares present Mouth: Yes Normal oral and palatal mucosa present Eyes: Periorbital: periorbital findings normal Sclera: sclerae normal EOM: EOMs intact bilaterally Neck: Neck: normal visual inspection, no lymphadenopathy and trachea midline Chest: Chest palpation & inspection: normal inspection of the chest Resp: Effort & Inspection: normal respiratory effort Auscultation: clear to auscultation bilaterally Cardio: Jugular venous distension: no JVD Rate: regular rate Rhythm: regular rhythm Heart sounds: S1 normal heart sound present and S2 normal heart sound present Peripheral pulses: Peripheral pulses 2+ throughout GI: Inspection: normal to inspection GI Palp: Yes Soft to palpation, No Tenderness to palpation present (GI), No Guarding due to palpation present (GI) and No Rebound tenderness present Percussion: Yes normal to percussion Auscultation: normal bowel sounds : General: Yes no CVA tenderness Back/Spine/Pelvis: Back: no CVA tenderness Neuro: General: patient oriented x3, no focal motor deficits and CN's II-XI intact bilaterally Cognition (Neuro): normal cognition Speech: normal speech Motor exam (neuro): 5/5 motor strength present throughout Extrem: General: capillary refill normal and no clubbing, cyanosis or edema Assessment and Plan Assessment and plan (1) Screening for colorectal cancer: Code(s): Z12.11 - Encounter for screening for malignant neoplasm of colon; Z12.12 - Encounter for screening for malignant neoplasm of rectum Status: Acute Assessment and Plan: I have recommended colonoscopy. I have discussed the procedure, risks, benefits, and alternatives. Questions were answered. Patient is agreeable to proceed.
[2025-01-06 10:23] VITALS: BP 118/63; PULSE 68; RESP 17; O2SAT 100
[2025-01-06 10:33] VITALS: BP 110/66; PULSE 65; RESP 15; O2SAT 100
[2025-01-06 10:43] VITALS: BP 130/77; PULSE 61; RESP 18; O2SAT 100
== END 2025-01-06 10:45 | disposition home or self-care (01) ==
PROVIDERS: PCP Family Medicine; Visit Provider Surgery
PROC: 0DJD8ZZ Inspection of Lower Intestinal Tract, Via Natural or Artificial Opening Endoscopic (ICD-10-PCS; CPT 45378; principal; 2025-01-06 10:00)
DX: Z12.11 Encounter for screening for malignant neoplasm of colon (principal); K57.30 Diverticulosis of large intestine without perforation or abscess without bleeding; I10 Essential (primary) hypertension; F41.9 Anxiety disorder, unspecified; G40.909 Epilepsy, unspecified, not intractable, without status epilepticus; F12.90 Cannabis use, unspecified, uncomplicated; Z79.51 Long term (current) use of inhaled steroids; Z79.1 Long term (current) use of non-steroidal anti-inflammatories (NSAID); Z98.890 Other specified postprocedural states; Z80.8 Family history of malignant neoplasm of other organs or systems
CPT/HCPCS: G0105; J2704; J7120